=== PATIENT | female | born 1950 | race Caucasian/White ===

== ENCOUNTER → 2016-05-06 | Outpatient (CLI) | payer MEDICARE ==
--- NOTE | 2016-05-06 12:02 | KCIC ---
PROCEDURE Chest, two views. HISTORY Shortness of breath. FINDINGS Frontal and lateral views of the chest are obtained. There is right upper lobe consolidation. There is no effusion or pneumothorax. The cardiac silhouette is upper normal in size. IMPRESSION Right upper lobe consolidation. Followup to confirm complete resolution and exclude underlying central obstructing mass. Electronically signed by: Emily Cuello (May 06, 2016 12:01:20)
== END | disposition home or self-care (01) ==
LOC: KCIC 11:22
PROVIDERS: ATTEND Family Medicine
DX: R09.02 Hypoxemia (principal); R05 Cough; R07.89 Other chest pain; R50.9 Fever, unspecified; R91.8 Other nonspecific abnormal finding of lung field
CPT/HCPCS: 71020

== ENCOUNTER → 2016-05-12 | Outpatient (CLI) | payer MEDICARE ==
[~2016-05-12] MED LIST: ACYC400T PO; ALPR1TAB2 PO; ASPI81TA2 PO; CELE200C PO; HYDR-2762 PO; MECL25TA3 PO; METO5TAB PO; PANT40TA5 PO; PARO20TA55 PO; PARO40TA45 PO; TRAZ50TA15 PO
--- NOTE | 2016-05-12 11:37 | KCIC ---
Chest PA and lateral Indication: Right upper lobe pneumonia. Time of exam 11:22 a.m. Comparison is made with prior chest from 05/06/2016. There continues to be extensive infiltrate and consolidation involving the right upper lobe and right perihilar region. This appears very similar to prior exam. The left lung remains clear. The pulmonary vascularity is unremarkable. No effusion is seen. There is no pneumothorax. Impression: No change in the right upper lobe pneumonia when compared with exam from 05/06/2016. Electronically signed by: Yuval Gardner MD (May 12, 2016 11:35:48)
== END | disposition home or self-care (01) ==
LOC: KCIC 11:07
PROVIDERS: ATTEND Family Medicine
DX: J18.9 Pneumonia, unspecified organism (principal)
CPT/HCPCS: 71020

== ENCOUNTER 2016-05-13 11:52 | Inpatient (IN) | payer MEDICARE ==
[~2016-05-13] VITALS: Ht 121.9 cm; Wt 88.5 kg
--- NOTE | 2016-05-13 12:30 | EKG ---
[facility] [address] [place] [address] Test Date: 2016-05-13 Test Time: 12:17:46 Pat Name: OH BUSTAMANTE Department: Room: Gender: F Manager Long Term Care: : 1950 Requested By: MARY ANN ROSARIO Order Number: [id number] Reading MD: Annika Mcfadden Measurements Intervals [place] Rate: 67 P: -39 MT: 132 QRS: -15 QRSD: 72 T: 17 QT: 422 QTc: 449 Interpretive Statements SINUS RHYTHM LEFTWARD AXIS NO SPECIFIC ECG ABNORMALITIES RI6.01 No previous ECG available for comparison Electronically Signed On 05-18-2016 14:47:38 G[employer] FARMER by Annika Mcfadden
--- NOTE | 2016-05-13 14:08 | PHYS DOC ---
Past Medical History Past Medical History: Other Additional Past Medical Histor: "NERVE PROBLEMS", CHRONIC PAIN Past Surgical History: Hysterectomy, Knee Replacement, Other Additional Past Surgical Histo: LEFT LEG SX - ZONIA PLACEMENT Alcohol Use: None Drug Use: None Adult General Chief Complaint Chief Complaint: SHORTNESS OF BREATH HPI HPI 66-year-old female presents from her primary care physician's office with failed outpatient treatment of pneumonia. She was noted to have a right upper lobe infiltrate and was treated with antibiotics but did not improve. In speaking with the family doctor they were concerned that this could be a postobstructive infiltrate.. Patient denies any hemoptysis. Patient has not had any high fevers or sweats. She has had shortness of breath and some dyspnea on exertion. [] Review of Systems Review of Systems Constitutional: Denies fever or chills [] Eyes: Denies change in visual acuity, redness, or eye pain [] HENT: Denies nasal congestion or sore throat [] Respiratory: Per history of present illness [] Cardiovascular: No additional information not addressed in HPI [] GI: Denies abdominal pain, nausea, vomiting, bloody stools or diarrhea [] : Denies dysuria or hematuria [] Musculoskeletal: Denies back pain or joint pain [] Integument: Denies rash or skin lesions [] Neurologic: Denies headache, focal weakness or sensory changes [] Endocrine: Denies polyuria or polydipsia [] Current Medications Current Medications Current Medications Medications (Trade) Dose Ordered Sig/Yovana Start Time Stop Time Status Last Admin Dose Admin Info (Do NOT chart on this entry -- for MONITORING) 1 each PRN DAILY PRN 05/13/16 15:15 05/15/16 15:14 Iohexol (Omnipaque 300 Mg/ml) 75 ml 1X ONCE 05/13/16 15:15 05/13/16 15:16 DC 05/13/16 15:11 75 ML Levofloxacin/ Dextrose (LEVAQUIN 750mg PREMIX) 150 ml @ 100 mls/hr 1X ONCE 05/13/16 16:45 05/13/16 18:14 Levofloxacin/ Dextrose 1 each 1 each PRN DAILY PRN 05/13/16 16:15 UNV Allergies Allergies Allergies Coded Allergies Type Severity Reaction Last Updated Verified No Known Drug Allergies 05/13/16 No Physical Exam Physical Exam Constitutional: Well developed, well nourished, no acute distress, non-toxic appearance. [] HENT: Normocephalic, atraumatic, bilateral external ears normal, oropharynx moist, no oral exudates, nose normal. [] Eyes: PERRLA, EOMI, conjunctiva normal, no discharge. [] Neck: Normal range of motion, no tenderness, supple, no stridor. [] Cardiovascular:Heart rate regular rhythm, no murmur [] Lungs & Thorax: Bilateral breath sounds clear to auscultation [] Abdomen: Bowel sounds normal, soft, no tenderness, no masses, no pulsatile masses. [] Skin: Warm, dry, no erythema, no rash. [] Back: No tenderness, no CVA tenderness. [] Extremities: No tenderness, no cyanosis, no clubbing, ROM intact, no edema. [] Neurologic: Alert and oriented X 3, normal motor function, normal sensory function, no focal deficits noted. [] Psychologic: Affect normal, judgement normal, mood normal. [] Current Patient Data Vital Signs Vital Signs Date Time Temp Pulse Resp B/P Pulse Ox O2 Delivery O2 Flow Rate FiO2 05/13/16 15:39 70 20 135/86 98 Nasal Cannula 2 05/13/16 12:25 97.5 97.5 Lab Values Laboratory Tests Test 05/13/16 13:55 White Blood Count 9.3x10^3/uL (4.0-11.0) Red Blood Count 3.92x10^6/uL (3.50-5.40) Hemoglobin 12.6g/dL (12.0-15.5) Hematocrit 38.1% (36.0-47.0) Mean Corpuscular Volume 97fL (79-100) Mean Corpuscular Hemoglobin 32pg (25-35) Mean Corpuscular Hemoglobin Concent 33g/dL (31-37) Red Cell Distribution Width 14.5% (11.5-14.5) Platelet Count 591x10^3/uL (140-400) H Neutrophils (%) (Auto) 71% (31-73) Lymphocytes (%) (Auto) 19% (24-48) L Monocytes (%) (Auto) 6% (0-9) Eosinophils (%) (Auto) 3% (0-3) Basophils (%) (Auto) 1% (0-3) Neutrophils # (Auto) 6.6x10^3uL (1.8-7.7) Lymphocytes # (Auto) 1.7x10^3/uL (1.0-4.8) Monocytes # (Auto) 0.6x10^3/uL (0.0-1.1) Eosinophils # (Auto) 0.3x10^3/uL (0.0-0.7) Basophils # (Auto) 0.1x10^3/uL (0.0-0.2) Prothrombin Time 13.6SEC (11.7-14.0) Prothrombin Time INR 1.1 (0.8-1.1) Sodium Level 139mmol/L (136-145) Potassium Level 5.2mmol/L (3.5-5.1) H Chloride Level 100mmol/L (98-107) Carbon Dioxide Level 35mmol/L (21-32) H Anion Gap 4 (6-14) L Blood Urea Nitrogen 16mg/dL (7-20) Creatinine 0.8mg/dL (0.6-1.0) Estimated GFR (Cockcroft-Gault) 72.2 BUN/Creatinine Ratio 20 (6-20) Glucose Level 134mg/dL (70-99) H Lactic Acid Level 1.9mmol/L (0.4-2.0) Calcium Level 9.8mg/dL (8.5-10.1) Total Bilirubin 0.4mg/dL (0.2-1.0) Aspartate Amino Transferase (AST) 37U/L (15-37) Alanine Aminotransferase (ALT) 43U/L (14-59) Alkaline Phosphatase 121U/L (46-116) H Troponin I Quantitative < 0.017ng/mL (0.000-0.055) Total Protein 8.1g/dL (6.4-8.2) Albumin 2.6g/dL (3.4-5.0) L Albumin/Globulin Ratio 0.5 (1.0-1.7) L Laboratory Tests 05/13/16 13:55 Laboratory Tests 05/13/16 13:55 EKG EKG [EKG: Normal sinus rhythm rate of [address]-T changes] Radiology/Procedures Radiology/Procedures [facility] [address] [place] [address] IMAGING REPORT Signed PATIENT: OH BUSTAMANTE ACCOUNT: [id number] : 1950 LOCATION: ER AGE: 66 SEX: F EXAM STATUS: REG ER ORD. PHYSICIAN: MARY ANN ROSARIO DO REASON: rul mass PROCEDURE: CHEST W/CONTRAST CT of the chest with contrast, 05/13/2016: History: Right upper lobe mass, persistent infiltrate Multidetector CT imaging was performed following an IV bolus injection of iodinated contrast material. The thoracic aorta is of normal caliber. Minimal coronary artery calcification is evident. The heart is of normal size. No mediastinal adenopathy is seen. There is consolidation involving much of the right upper lobe with underlying air bronchograms. There is apparent obstruction of the right upper lobe bronchus near its origin. No discrete mass, separable from the adjacent consolidation, is delineated. The right bronchus intermedius, middle lobe and lower lobe bronchi are unremarkable. Areas of mild linear atelectasis and/or scarring are seen in other portions of the right lung and on the left. No left lung consolidation is seen. No pleural fluid is evident. The gallbladder surgically absent. The adrenal glands are unremarkable. There is loss of height with endplate deformities involving many of the thoracic vertebral bodies, as also noted on a CT thoracic spine study from 12/08/2012. IMPRESSION: 1. Right upper lobe consolidation compatible with pneumonia. 2. Apparent amputation of the right main bronchus near its origin raises the possibility of an obstructing neoplasm as the cause of the right upper lobe pneumonia. Bronchoscopy should be considered for further evaluation. DICTATED and SIGNED BY: JOSE GARSIA MD DATE: 05/13/16 0033 CC: JAEL CHRISTENSEN MD; MARY ANN ROSARIO DO ~ [] Course & Med Decision Making Course & Med Decision Making Pertinent Labs and Imaging studies reviewed. (See chart for details) Addendum by Dr. Matthew Ghosh M.D.: Care of patient was signed out to me at 1401. I personally evaluated the patient found that the patient was on supplemental oxygen with reports of action saturations decreasing to the upper 80s. I turned the patient's oxygen down and with minimal exertion the patient's oxygen saturation decreased to 83% with a good waveform. The patient was placed back on supplemental oxygen. I followed up with the patient's CT results which show a right upper lobe pneumonia as well as invasion of the right main bronchus suspicious for neoplasm. I consult to Dr. Phelps who evaluated the patient in the emergency department and he agrees with need for admission and further evaluation in hospital. Patient admitted to Dr. Hogan. Dragon Disclaimer Dragon Disclaimer This electronic medical record was generated, in whole or in part, using a voice recognition dictation system. Departure Departure Impression: Primary Impression: Community acquired pneumonia Additional Impressions: Hypoxia Lung neoplasm Disposition: ADMITTED INPATIENT Admitting Physician: Moisés Hogan Condition: GUARDED Referrals: JAEL CHRISTENSEN MD (PCP) Problem Qualifiers MARY ANN ROSARIO DO May 13, 2016 14:08 MATTHEW GHOSH MD May 13, 2016 16:20
[2016-05-13 14:11] LABS: BASO # 0.1 x10^3/uL (0.0-0.2); BASO % 1 % (0-3); EOS % 3 % (0-3); HEMATOCRIT 38.1 % (36.0-47.0); HEMOGLOBIN 12.6 g/dL (12.0-15.5); LYMPH # 1.7 x10^3/uL (1.0-4.8); LYMPH % 19 % (24-48); MEAN CORPUSCULAR HEMOGLOBIN 32 pg (25-35); MEAN CORPUSCULAR HGB CONC 33 g/dL (31-37); MEAN CORPUSCULAR VOLUME 97 fL (79-100); MONO % 6 % (0-9); NEUT % 71 % (31-73); PLATELET COUNT 591 x10^3/uL (140-400); RED BLOOD COUNT 3.92 x10^6/uL (3.50-5.40); RED CELL DISTRIBUTION WIDTH 14.5 % (11.5-14.5); WHITE BLOOD COUNT 9.3 x10^3/uL (4.0-11.0)
[2016-05-13 14:34] LABS: INR 1.1 (0.8-1.1); PROTHROMBIN TIME PATIENT 13.6 SEC (11.7-14.0)
[2016-05-13 15:08] LABS: CALCIUM 9.8 mg/dL (8.5-10.1); CREATININE 0.8 mg/dL (0.6-1.0); GFR 72.2; POTASSIUM 5.2 mmol/L (3.5-5.1)
[2016-05-13 15:14] LABS: ALBUMIN 2.6 g/dL (3.4-5.0); ALBUMIN/GLOBULIN RATIO 0.5 (1.0-1.7); TOTAL BILIRUBIN 0.4 mg/dL (0.2-1.0); TOTAL PROTEIN 8.1 g/dL (6.4-8.2)
[2016-05-13] MEDS ORDERED: CONTRAST GIVEN MC PRN (15:15)
[2016-05-13] MEDS ORDERED: IOHEXOL 300 MG/ML 75 ML VIAL IV ONE (15:15)
--- NOTE | 2016-05-13 15:39 | RAD ---
CT of the chest with contrast, 05/13/2016: History: Right upper lobe mass, persistent infiltrate Multidetector CT imaging was performed following an IV bolus injection of iodinated contrast material. The thoracic aorta is of normal caliber. Minimal coronary artery calcification is evident. The heart is of normal size. No mediastinal adenopathy is seen. There is consolidation involving much of the right upper lobe with underlying air bronchograms. There is apparent obstruction of the right upper lobe bronchus near its origin. No discrete mass, separable from the adjacent consolidation, is delineated. The right bronchus intermedius, middle lobe and lower lobe bronchi are unremarkable. Areas of mild linear atelectasis and/or scarring are seen in other portions of the right lung and on the left. No left lung consolidation is seen. No pleural fluid is evident. The gallbladder surgically absent. The adrenal glands are unremarkable. There is loss of height with endplate deformities involving many of the thoracic vertebral bodies, as also noted on a CT thoracic spine study from 12/08/2012. IMPRESSION: 1. Right upper lobe consolidation compatible with pneumonia. 2. Apparent amputation of the right main bronchus near its origin raises the possibility of an obstructing neoplasm as the cause of the right upper lobe pneumonia. Bronchoscopy should be considered for further evaluation.
[2016-05-13] MEDS ORDERED: LEVOFLOXACIN PER PHARMACY MC PRN (16:15)
--- NOTE | 2016-05-13 16:27 | PDOC ---
Provider Note Provider Note dictated post-obstructive vs aspiration pneumonia Bronch 10 am HEIDI LONGORIA MD May 13, 2016 16:27
[2016-05-13] MEDS ORDERED: PIP/TAZO PER PHARMACY MC PRN (16:30)
[2016-05-13] MEDS ORDERED: VANCOMYCIN 2 GM in IV NORMAL SALINE 500ML BAG 500 ML IV ONE (17:00)
[2016-05-13] MEDS ORDERED: PIPERACILLIN/TAZOBACTAM 4.5 GM in IV NORMAL SALINE 100ML 100 ML IV ONE (17:00)
[2016-05-13] MEDS ORDERED: ONDANSETRON PF 4 MG/2 ML VIAL. IV PRN ×2 (17:00→18:45)
[2016-05-13 17:15] LABS: HCO3 ABG 32 mmol/L (21-28); PCO2 ABG 52 mmHg (35-46); PH ABG 7.41 (7.35-7.45); PO2 ABG 87 mmHg (65-108); SAT O2 ABG 96 % (92-99)
--- NOTE | 2016-05-13 17:25 | CONS ---
DATE OF CONSULTATION: ATTENDING PHYSICIAN: Dr. Hogan. REASON FOR CONSULTATION: Pneumonia, possible postobstructive process. 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 The patient presented to the hospital with complaint of a persistent cough. Apparently, the cough has been present for 6 months. It happens with food as well. She had some colored sputum production. She did not have any fever. The patient was seen as an outpatient and was found to have pneumonia. As a result, she was sent to the ER. I have reviewed CT of the chest and it shows right upper lobe consolidation compatible with pneumonia. There is a possibility of a right main stem bronchus occlusion, which could be ____ mucus plug versus a possible endobronchial lesion. I have been asked to see her for further evaluation. The patient has not been on oxygen at home. No significant history of tobacco use. No significant thrombosis or pulmonary embolism. PAST MEDICAL HISTORY: History of dwarfism. SOCIAL HISTORY: No significant tobacco history. PAST SURGICAL HISTORY: Hysterectomy, knee replacement. ALLERGIES: None. MEDICATIONS: Medication that she received in the ER was Levaquin. REVIEW OF SYSTEMS: Twelve-point systems were obtained, pertinent positives discussed in history of present illness, otherwise noncontributory. All systems that were negative were reviewed as well. PHYSICAL EXAMINATION: VITAL SIGNS: She has a blood pressure of 135/86, pulse ox ____% on 2 liters, afebrile. HEENT: Sclerae nonicteric. NECK: Supple. LUNGS: Few rhonchi, right upper chest. CARDIOVASCULAR: Regular rate. ABDOMEN: Obese. EXTREMITIES: With no pitting edema. LABORATORY DATA: Reviewed. White cell count 9.3. Sodium ____5.2, BUN is 16, creatinine 0.8. IMPRESSION: 1. Right upper lobe consolidation with possible postobstructive process. This patient has been coughing for 6 months. The cough is also usually associated with food. The possibility of chronic aspiration cannot be ruled out. 2. No significant history of tobacco use. 3. Acute hypoxic respiratory failure secondary to above. 4. Moderate protein-calorie malnutrition. 5. Dwarfism. RECOMMENDATIONS: 1. Discussed with the patient and the and the father. Option for diagnostic bronchoscopy was explained and they agreed to proceed with the procedure. I did explain to them that she would be moderate to high risk with sedation resulting in hypoxia and hypercapnia, however, the only way to know for endobronchial lesion would be to do a bronchoscopy and they understand the risks. They also understand that she may require BiPAP post-procedure or even mechanical ventilation. 2. Broaden the antibiotic coverage with vancomycin and Zosyn. 3. Speech consult with video swallow to rule out chronic aspiration. 4. Bronchodilators. 5. We will followup chest x-rays in 3 days. 6. Further recommendations to follow. Discussed with ER physician and patient's family. HEIDI LONGORIA MD DR: IQRA/evelyn JOB#: [id number] / [id number]
[2016-05-13] MEDS ORDERED: ACETAMINOPHEN 325 MG TABLET. PO PRN (18:45)
[2016-05-13] MEDS ORDERED: hydrALAZINE 20 MG/ML VIAL. IVP PRN (18:45)
[2016-05-13] MEDS ORDERED: ALBUTEROL SULFATE 2.5 MG/3 ML NEBU. NEB PRN (18:45)
[2016-05-13] MEDS ORDERED: HYDROCODONE/APAP 5/325MG TABLET. PO PRN (18:45)
[2016-05-13] MEDS: VANCOMYCIN PER PHARMACY MC PRN (18:46)
[2016-05-13 19:55] VITALS: BP 129/63
[2016-05-13] MEDS ORDERED: PARO40TA45 PO (22:05)
[2016-05-13] MEDS ORDERED: HYDR-2762 PO ×2 (22:05→22:27)
[2016-05-13] MEDS ORDERED: PARO20TA55 PO (22:05)
[2016-05-13] MEDS ORDERED: TRAZ50TA15 PO (22:05)
[2016-05-13] MEDS ORDERED: ALPR1TAB2 PO (22:12)
[2016-05-13] MEDS: ALPRAZOLAM 1 MG TABLET PO SCH (22:49)
[2016-05-13] MEDS: traZODone 100 MG TABLET. PO SCH (22:50)
[2016-05-13] MEDS: PAROXETINE 20 MG TABLET. PO SCH (22:51)
[2016-05-13 23:35] VITALS: BP 90/45
[2016-05-14] VITALS (13 sets, daily range): BP systolic 90–136; BP diastolic 51–94
[2016-05-14] MEDS ORDERED: PIPERACILLIN/TAZOBACTAM 3.375 GM in IV NORMAL SALINE 50ML 50 ML IV SCH ×2
--- NOTE | 2016-05-14 00:11 | HP ---
ADMIT DATE: 05/13/2016 CHIEF COMPLAINT: Shortness of breath. HISTORY OF PRESENT ILLNESS: A 66-year-old female patient with prior history of chronic cough and diagnosed with pneumonia as outpatient. However, symptoms did not improve with oral antibiotics. She had right upper lobe infiltrate and recommended to go to the ER due to nonresolving pneumonia. The patient also complaining of postnasal discharge with chronic cough. She did have chronic pain and hypertension as chronic medical conditions and currently she was requiring oxygen to keep her saturations above 90%. PAST MEDICAL HISTORY: Chronic pain, hypertension . PAST SURGICAL HISTORY: Hysterectomy, knee replacement. PERSONAL HISTORY: No smoking, no alcohol, no drug abuse. FAMILY HISTORY: No cancers. REVIEW OF SYSTEMS: CONSTITUTIONAL: No fever or chills. EYES: No recent vision changes. SKIN: No rash or itching. CARDIOVASCULAR: No chest pain, syncope, palpitations or edema. RESPIRATORY: Cough. GASTROINTESTINAL: No nausea, vomiting, diarrhea or abdominal pain. NEUROLOGICAL: No headache, paralysis. ENDOCRINOLOGIC: No cold or heat intolerance. GENITOURINARY: No burning with urination, no urgency. MUSCULOSKELETAL: Back pain. LYMPHATICS: No enlarged nodes. PSYCHIATRIC: No anxiety or depression. HOME MEDICATIONS: Reviewed and reconciled. Please see MRAD. ALLERGIES: NKDA. PHYSICAL EXAM: GENERAL: The patient appears short in status, no acute distress, nontoxic appearance. HEENT: Head normocephalic, atraumatic. EYES: PERRLA, EOMI. NECK: No JVD, no thyromegaly. LUNGS: Anterior chest clear. HEART: S1, S2 present. ABDOMEN: Soft, nontender, no organomegaly. Skin: warm and dry. EXTREMITIES: No tenderness, no cyanosis no clubbing. NEUROLOGIC: Alert and oriented x 3. PSYCHIATRIC: Normal affect, judgment intact. VITAL SIGNS: Temperature 97.5, pulse 70, respirations 20, blood pressure 135/86, pulse ox 98 on 2 litres. LABORATORY DATA: ABGs: pH is 7.41, pCO2 of 52, pO2 51, FiO2 of 28%. Chemistry: Sodium is 139, potassium 5.0, chloride 100, carbon dioxide 35, anion gap is 4, creatinine 0.8 and glucose is 134. Troponin is less than 0.017. Hematology: WBC 9.3, hemoglobin is 12.6, MCV is 97, MCHC 33, platelets 591 Coagulation: INR is 1.1. IMAGING STUDIES: CT of the chest showed right upper lobe consolidation compatible with pneumonia, ____ of the right main bronchus ____ raises the possibility of obstructive neoplasm as a cause of the right upper lobe pneumonia. ASSESSMENT: 1. Right upper lobe infiltrate, suspected neoplasm versus pneumonia, mucus plug. 2. Hypoxic respiratory failure. 3. Chronic back pain. 4. Mild hyperkalemia. 5. Thrombocytosis. 6. Hypertension. PLAN: 1. The patient has been admitted to the hospital for further evaluation. Currently we will start her on IV antibiotics, IV Levaquin and consult pulmonology, possible bronchoscopy in a.m. 2. Speech and swallow evaluation. 3. Pain control with oral [place]. 4. Supplemental oxygen to keep saturations around 90%. 5. Dwarfism, which is chronic. 6. Periodic bronchodilator for symptomatic treatment. 7. Plan explained to patient and family members at bedside. All questions were answered. LISETH MONREAL MD DR: JAVY/evelyn JOB#: [id number] / [id number] [place]
[2016-05-14] MEDS: FENTANYL PF 100 MCG/2 ML VIAL. IV PRN ×3 (00:47→12:04)
--- NOTE | 2016-05-14 01:06 | ACF ---
Admission Forms Criteria RESPIRATORY FAILURE [facility] Clinical Indications for Admission to Inpatient Care (Place 'X' for any and all applicable criteria): Hospital admission is needed for appropriate care of the patient because of acute respiratory failure or insufficiency as indicated by ANY ONE of the following(1)(2)(3)(4)(5)(6)(7)(8): [ ]I. Mechanical ventilation needed (acute invasive or noninvasive) [X]II. Severe ventilation deficit as indicated by ANY ONE of the following (9) [ ]a) Respiratory acidosis (pH less than 7.32 and partial pressure of carbon dioxide greater than 40 mm Hg (5.3 kPa)) [X]b) Partial pressure of carbon dioxide greater than 44 mm Hg (5.9 kPa ) (new) [ ]c) Airflow measurements less than 25% of predicted (eg, peak expiratory flow rate less than 100 L/minute) [ ]d) Forced vital capacity less than 15 mL/kg of ideal body weight, or 50% decrease in vital capacity from baseline [ ]III. Noncardiac pulmonary edema not resolving with rapid emergency treatment (8) [ ]IV. Severe respiratory distress as indicated by ANY ONE of the following: [ ]a) Severe tachypnea (respiratory rate greater than 30, greater than 45 for 6-month-old, greater than 60 for ) [ ]b) Severe hypoxemia (partial pressure of oxygen less than 50 mm Hg ( 6.7 kPa) on greater than 50% oxygen or partial pressure of oxygen to FIO2 ratio less than 200) [ ]c) Mental status deterioration from respiratory disease [ ]V. Airway obstruction or inadequate protection [A](10)(11) The original [employer] content created by [employer] has been revised. The portions of the content which have been revised are identified through the use of italic text or in bold, and [employer] has neither reviewed nor approved the modified material. All other unmodified content is copyright [employer]. Please see references footnoted in the original [employer] edition 2016 Admission Criteria Met?: Yes YANNICK LEE May 14, 2016 01:06
[2016-05-14] MEDS: PIPERACILLIN/TAZOBACTAM 4.5 GM in IV NORMAL SALINE 100ML 100 ML IV SCH ×5 (01:56→23:57)
[2016-05-14] MEDS ORDERED: CELE200C PO (04:57)
[2016-05-14] MEDS ORDERED: ASPI81TA2 PO (04:57)
[2016-05-14] MEDS ORDERED: ACYC400T PO (04:57)
[2016-05-14] MEDS ORDERED: PANT40TA5 PO (04:57)
[2016-05-14] MEDS ORDERED: MECLIZINE HCL 12.5 MG TABLET. PO PRN (05:00)
[2016-05-14] MEDS ORDERED: METOCLOPRAMIDE 5 MG TABLET PO PRN (05:00)
[2016-05-14] MEDS ORDERED: MECL25TA3 PO (05:03)
[2016-05-14] MEDS ORDERED: METO5TAB PO (05:03)
[2016-05-14 06:14] LABS: CREATININE 0.6 mg/dL (0.6-1.0); GFR 100.6; POTASSIUM 4.3 mmol/L (3.5-5.1)
[2016-05-14] MEDS: PANTOPRAZOLE 40 MG TABLET. PO SCH (07:30)
[2016-05-14 07:35] LABS: BASO # 0.1 x10^3/uL (0.0-0.2); BASO % 1 % (0-3); EOS % 3 % (0-3); HEMATOCRIT 33.3 % (36.0-47.0); HEMOGLOBIN 11.1 g/dL (12.0-15.5); LYMPH # 1.8 x10^3/uL (1.0-4.8); LYMPH % 22 % (24-48); MEAN CORPUSCULAR HEMOGLOBIN 32 pg (25-35); MEAN CORPUSCULAR HGB CONC 33 g/dL (31-37); MEAN CORPUSCULAR VOLUME 97 fL (79-100); MONO % 9 % (0-9); NEUT % 66 % (31-73); PLATELET COUNT 492 x10^3/uL (140-400); RED BLOOD COUNT 3.43 x10^6/uL (3.50-5.40); RED CELL DISTRIBUTION WIDTH 14.4 % (11.5-14.5)
[2016-05-14] MEDS: ACYCLOVIR 200 MG CAPSULE PO SCH (07:53)
[2016-05-14] MEDS: CELECOXIB 200 MG CAPSULE PO SCH ×3 (07:53→21:00)
[2016-05-14] MEDS: ASPIRIN 81 MG TAB.CHEW PO SCH (07:53)
[2016-05-14] MEDS: PAROXETINE 20 MG TABLET. PO SCH ×3 (07:54→21:00)
[2016-05-14] MEDS: ALPRAZOLAM 1 MG TABLET PO SCH ×5 (07:54→21:00)
[2016-05-14] MEDS ORDERED: VANCOMYCIN 1.25 GM in IV NORMAL SALINE 250ML 250 ML IV SCH (08:00)
[2016-05-14] MEDS ORDERED: PAROXETINE HCL PO SCH (08:00)
--- NOTE | 2016-05-14 08:58 | PDOC ---
PULMONARY PROGRESS NOTES Subjective sleepy no soa Vitals Vital Signs Date Time Temp Pulse Resp B/P Pulse Ox O2 Delivery O2 Flow Rate FiO2 05/14/16 07:57 98 Nasal Cannula 2.0 05/14/16 07:45 97.5 67 16 92/51 97.5 Lungs: Clear Cardiovascular: S1 Abdomen: Soft Extremities: No Edema Skin: Warm Labs Laboratory Tests Test 05/13/16 13:55 05/13/16 17:00 05/14/16 05:30 05/14/16 07:00 White Blood Count 9.3x10^3/uL (4.0-11.0) 8.0x10^3/uL (4.0-11.0) Red Blood Count 3.92x10^6/uL (3.50-5.40) 3.43x10^6/uL (3.50-5.40) Hemoglobin 12.6g/dL (12.0-15.5) 11.1g/dL (12.0-15.5) Hematocrit 38.1% (36.0-47.0) 33.3% (36.0-47.0) Mean Corpuscular Volume 97fL (79-100) 97fL (79-100) Mean Corpuscular Hemoglobin 32pg (25-35) 32pg (25-35) Mean Corpuscular Hemoglobin Concent 33g/dL (31-37) 33g/dL (31-37) Red Cell Distribution Width 14.5% (11.5-14.5) 14.4% (11.5-14.5) Platelet Count 591x10^3/uL (140-400) 492x10^3/uL (140-400) Neutrophils (%) (Auto) 71% (31-73) 66% (31-73) Lymphocytes (%) (Auto) 19% (24-48) 22% (24-48) Monocytes (%) (Auto) 6% (0-9) 9% (0-9) Eosinophils (%) (Auto) 3% (0-3) 3% (0-3) Basophils (%) (Auto) 1% (0-3) 1% (0-3) Neutrophils # (Auto) 6.6x10^3uL (1.8-7.7) 5.3x10^3uL (1.8-7.7) Lymphocytes # (Auto) 1.7x10^3/uL (1.0-4.8) 1.8x10^3/uL (1.0-4.8) Monocytes # (Auto) 0.6x10^3/uL (0.0-1.1) 0.7x10^3/uL (0.0-1.1) Eosinophils # (Auto) 0.3x10^3/uL (0.0-0.7) 0.2x10^3/uL (0.0-0.7) Basophils # (Auto) 0.1x10^3/uL (0.0-0.2) 0.1x10^3/uL (0.0-0.2) Prothrombin Time 13.6SEC (11.7-14.0) Prothromb Time International Ratio 1.1 (0.8-1.1) Sodium Level 139mmol/L (136-145) 141mmol/L (136-145) Potassium Level 5.2mmol/L (3.5-5.1) 4.3mmol/L (3.5-5.1) Chloride Level 100mmol/L (98-107) 105mmol/L (98-107) Carbon Dioxide Level 35mmol/L (21-32) 31mmol/L (21-32) Anion Gap 4 (6-14) 5 (6-14) Blood Urea Nitrogen 16mg/dL (7-20) 12mg/dL (7-20) Creatinine 0.8mg/dL (0.6-1.0) 0.6mg/dL (0.6-1.0) Estimated GFR (Cockcroft-Gault) 72.2 100.6 BUN/Creatinine Ratio 20 (6-20) Glucose Level 134mg/dL (70-99) 109mg/dL (70-99) Lactic Acid Level 1.9mmol/L (0.4-2.0) Calcium Level 9.8mg/dL (8.5-10.1) 8.0mg/dL (8.5-10.1) Total Bilirubin 0.4mg/dL (0.2-1.0) Aspartate Amino Transf (AST/SGOT) 37U/L (15-37) Alanine Aminotransferase (ALT/SGPT) 43U/L (14-59) Alkaline Phosphatase 121U/L (46-116) Troponin I Quantitative < 0.017ng/mL (0.000-0.055) Total Protein 8.1g/dL (6.4-8.2) Albumin 2.6g/dL (3.4-5.0) Albumin/Globulin Ratio 0.5 (1.0-1.7) O2 Saturation 96% (92-99) Arterial Blood pH 7.41 (7.35-7.45) Arterial Blood pCO2 at Patient Temp 52mmHg (35-46) Arterial Blood pO2 at Patient Temp 87mmHg (65-108) Arterial Blood HCO3 32mmol/L (21-28) Arterial Blood Base Excess 6mmol/L (-3-3) FiO2 28.0 Laboratory Tests Test 05/13/16 13:55 05/13/16 17:00 05/14/16 05:30 05/14/16 07:00 White Blood Count 9.3x10^3/uL (4.0-11.0) 8.0x10^3/uL (4.0-11.0) Red Blood Count 3.92x10^6/uL (3.50-5.40) 3.43x10^6/uL (3.50-5.40) Hemoglobin 12.6g/dL (12.0-15.5) 11.1g/dL (12.0-15.5) Hematocrit 38.1% (36.0-47.0) 33.3% (36.0-47.0) Mean Corpuscular Volume 97fL (79-100) 97fL (79-100) Mean Corpuscular Hemoglobin 32pg (25-35) 32pg (25-35) Mean Corpuscular Hemoglobin Concent 33g/dL (31-37) 33g/dL (31-37) Red Cell Distribution Width 14.5% (11.5-14.5) 14.4% (11.5-14.5) Platelet Count 591x10^3/uL (140-400) 492x10^3/uL (140-400) Neutrophils (%) (Auto) 71% (31-73) 66% (31-73) Lymphocytes (%) (Auto) 19% (24-48) 22% (24-48) Monocytes (%) (Auto) 6% (0-9) 9% (0-9) Eosinophils (%) (Auto) 3% (0-3) 3% (0-3) Basophils (%) (Auto) 1% (0-3) 1% (0-3) Neutrophils # (Auto) 6.6x10^3uL (1.8-7.7) 5.3x10^3uL (1.8-7.7) Lymphocytes # (Auto) 1.7x10^3/uL (1.0-4.8) 1.8x10^3/uL (1.0-4.8) Monocytes # (Auto) 0.6x10^3/uL (0.0-1.1) 0.7x10^3/uL (0.0-1.1) Eosinophils # (Auto) 0.3x10^3/uL (0.0-0.7) 0.2x10^3/uL (0.0-0.7) Basophils # (Auto) 0.1x10^3/uL (0.0-0.2) 0.1x10^3/uL (0.0-0.2) Prothrombin Time 13.6SEC (11.7-14.0) Prothromb Time International Ratio 1.1 (0.8-1.1) Sodium Level 139mmol/L (136-145) 141mmol/L (136-145) Potassium Level 5.2mmol/L (3.5-5.1) 4.3mmol/L (3.5-5.1) Chloride Level 100mmol/L (98-107) 105mmol/L (98-107) Carbon Dioxide Level 35mmol/L (21-32) 31mmol/L (21-32) Anion Gap 4 (6-14) 5 (6-14) Blood Urea Nitrogen 16mg/dL (7-20) 12mg/dL (7-20) Creatinine 0.8mg/dL (0.6-1.0) 0.6mg/dL (0.6-1.0) Estimated GFR (Cockcroft-Gault) 72.2 100.6 BUN/Creatinine Ratio 20 (6-20) Glucose Level 134mg/dL (70-99) 109mg/dL (70-99) Lactic Acid Level 1.9mmol/L (0.4-2.0) Calcium Level 9.8mg/dL (8.5-10.1) 8.0mg/dL (8.5-10.1) Total Bilirubin 0.4mg/dL (0.2-1.0) Aspartate Amino Transf (AST/SGOT) 37U/L (15-37) Alanine Aminotransferase (ALT/SGPT) 43U/L (14-59) Alkaline Phosphatase 121U/L (46-116) Troponin I Quantitative < 0.017ng/mL (0.000-0.055) Total Protein 8.1g/dL (6.4-8.2) Albumin 2.6g/dL (3.4-5.0) Albumin/Globulin Ratio 0.5 (1.0-1.7) O2 Saturation 96% (92-99) Arterial Blood pH 7.41 (7.35-7.45) Arterial Blood pCO2 at Patient Temp 52mmHg (35-46) Arterial Blood pO2 at Patient Temp 87mmHg (65-108) Arterial Blood HCO3 32mmol/L (21-28) Arterial Blood Base Excess 6mmol/L (-3-3) FiO2 28.0 Medications Active Scripts Medications Dose Route/Sig Days Date Category Metoclopramide Hcl 5 Mg Tablet 5 Mg PO TID PRN 05/14/16 Reported Meclizine Hcl 25 Mg Tablet 1 Tab PO PRN TID 05/14/16 Reported Pantoprazole Sodium 40 Mg Tablet.dr 1 Tab PO DAILY 05/14/16 Reported Acyclovir 400 Mg Tablet 1 Tab PO DAILY08 05/14/16 Reported Aspirin 81 Mg Tab.chew 1 Tab PO DAILY 05/14/16 Reported Celebrex (Celecoxib) 200 Mg Capsule 200 Mg PO BID 30 05/14/16 Reported Hydrocodone-Apap 7.5-325 (Hydrocodone Bit/Acetaminophen) 1 Each Tablet 1 Tab PO Q8HRS 05/13/16 Reported Xanax (Alprazolam) 1 Mg Tablet 1 Tab PO TID 05/13/16 Reported Trazodone Hcl 50 Mg Tablet 2 Tab PO QHS 05/13/16 Reported Paxil (Paroxetine Hcl) 20 Mg Tablet 1 Tab PO DAILY 05/13/16 Reported Paxil (Paroxetine Hcl) 40 Mg Tablet 1 Tab PO DAILY08 05/13/16 Reported Impression . 1. Right upper lobe consolidation with possible postobstructive process. This patient has been coughing for 6 months. The cough is also usually associated with food. The possibility of chronic aspiration cannot be ruled out. 2. No significant history of tobacco use. 3. Acute hypoxic respiratory failure secondary to above. 4. Moderate protein-calorie malnutrition. 5. Dwarfism. Plan . 1. Discussed with the patient and the and the father. Option for diagnostic bronchoscopy was explained and they agreed to proceed with the procedure. I did explain to them that she would be moderate to high risk with sedation resulting in hypoxia and hypercapnia, however, the only way to know for endobronchial lesion would be to do a bronchoscopy and they understand the risks. They also understand that she may require BiPAP post-procedure or even mechanical ventilation. 2. Broaden the antibiotic coverage with vancomycin and Zosyn. 3. Speech consult with video swallow to rule out chronic aspiration. 4. Bronchodilators. 5. We will followup chest x-rays in 3 days. 6. Further recommendations to follow. HEIDI LONGORIA MD May 14, 2016 08:58
[2016-05-14 09:10] LABS: % EOS 6 % (0-5); PLT ESTIMATE INCREASED (ADEQUATE)
[2016-05-14] MEDS ORDERED: MIDAZOLAM HCL 2 MG/2 ML VIAL. ONE (09:37)
[2016-05-14] MEDS ORDERED: PROPOFOL 20 ML IV ONE (09:38)
[2016-05-14] MEDS: IV RINGERS,LACTATED 1000ML 1,000 ML IV SCH ×2 (10:04→22:19)
[2016-05-14] MEDS ORDERED: EPINEPHRINE 1 MG/10 ML DISP.SYRIN. ONE (10:10)
--- NOTE | 2016-05-14 11:18 | OP ---
DATE OF SURGERY: NAME OF THE PROCEDURE: Bronchoscopy. INDICATIONS FOR THE PROCEDURE: Endobronchial mass lesion. DESCRIPTION OF PROCEDURE: Informed consent was obtained from the patient and her . All the risks including risk of respiratory failure, need for mechanical ventilation and BiPAP were explained. They agreed to proceed with the procedure. Benefits were explained as well. Propofol was used by Anesthesia. Bronchoscope was introduced through the right nostril. The upper airway was passed. Vocal cords reached. They move equally with respiration. The trachea was entered. No tracheal lesions seen. The right lung was first examined. The right upper lobe opening was completely occluded by the endobronchial lesion. It could also be a foreign body granuloma. Biopsies x 2 were done from this area with minimal bleeding, which was controlled with epinephrine. Right middle lobe and right lower lobe were patent. Left lung was examined. All subsegments of left upper lingula and left lower lobe were examined, no endobronchial lesions seen. The patient was restless during the procedure, but eventually tolerated it. IMPRESSION: 1. Endobronchial lesion seen at the opening of the right upper lobe causing total occlusion. It is most likely malignant, but the possibility of foreign body endobronchial granuloma is also a consideration. Biopsies x 2 and cytology brush x 1 was performed. 2. No significant purulent secretions seen. 3. Follow the results of biopsy. HEIDI LONGORIA MD DR: IQRA/evelyn JOB#: [id number] / [id number]
[2016-05-14] MEDS ORDERED: FENTANYL PF 100 MCG/2 ML VIAL. IV PRN (12:00)
--- NOTE | 2016-05-14 12:02 | PDOC ---
PROGRESS NOTES Chief Complaint Chief Complaint 1. Right upper lobe infiltrate 2. Hypoxic respiratory failure. 3. Chronic back pain. 4. Mild hyperkalemia. 5. Thrombocytosis. 6. Hypertension. 7. Dwarfism History of Present Illness History of Present Illness The pt was awake and somewhat anxious upon arrival to room this AM. The pt had just returned from Diagnostic Bronchoscopy and stated that she was feeling anxious. When asked if the pt took any medications for anxiety she did admit to taking Hydrocodone for anxiety and pain. The pt was still complaining of a cough this morning after the procedure and some fatigue from being unable to sleep. RITU RN- pt on regular home pain control; will hold pain meds for now while patient recovering post anesthesia Vitals Vitals Vital Signs Date Time Temp Pulse Resp B/P Pulse Ox O2 Delivery O2 Flow Rate FiO2 05/14/16 10:35 90 18 103/84 98 Simple Mask 6 05/14/16 10:20 97.0 97.0 Physical Exam General: Alert, Cooperative, mild distress Heart: Regular rate, No murmurs Lungs: Wheezing, Other (Diminished breath sounds in RUL) Abdomen: Soft, No tenderness Extremities: No cyanosis, No edema Skin: No rashes, No breakdown Labs LABS Laboratory Tests Test 05/13/16 13:55 05/13/16 17:00 05/14/16 05:30 05/14/16 07:00 White Blood Count 9.3x10^3/uL (4.0-11.0) 8.0x10^3/uL (4.0-11.0) Red Blood Count 3.92x10^6/uL (3.50-5.40) 3.43x10^6/uL (3.50-5.40) Hemoglobin 12.6g/dL (12.0-15.5) 11.1g/dL (12.0-15.5) Hematocrit 38.1% (36.0-47.0) 33.3% (36.0-47.0) Mean Corpuscular Volume 97fL (79-100) 97fL (79-100) Mean Corpuscular Hemoglobin 32pg (25-35) 32pg (25-35) Mean Corpuscular Hemoglobin Concent 33g/dL (31-37) 33g/dL (31-37) Red Cell Distribution Width 14.5% (11.5-14.5) 14.4% (11.5-14.5) Platelet Count 591x10^3/uL (140-400) 492x10^3/uL (140-400) Neutrophils (%) (Auto) 71% (31-73) 66% (31-73) Lymphocytes (%) (Auto) 19% (24-48) 22% (24-48) Monocytes (%) (Auto) 6% (0-9) 9% (0-9) Eosinophils (%) (Auto) 3% (0-3) 3% (0-3) Basophils (%) (Auto) 1% (0-3) 1% (0-3) Neutrophils # (Auto) 6.6x10^3uL (1.8-7.7) 5.3x10^3uL (1.8-7.7) Lymphocytes # (Auto) 1.7x10^3/uL (1.0-4.8) 1.8x10^3/uL (1.0-4.8) Monocytes # (Auto) 0.6x10^3/uL (0.0-1.1) 0.7x10^3/uL (0.0-1.1) Eosinophils # (Auto) 0.3x10^3/uL (0.0-0.7) 0.2x10^3/uL (0.0-0.7) Basophils # (Auto) 0.1x10^3/uL (0.0-0.2) 0.1x10^3/uL (0.0-0.2) Prothrombin Time 13.6SEC (11.7-14.0) Prothromb Time International Ratio 1.1 (0.8-1.1) Sodium Level 139mmol/L (136-145) 141mmol/L (136-145) Potassium Level 5.2mmol/L (3.5-5.1) 4.3mmol/L (3.5-5.1) Chloride Level 100mmol/L (98-107) 105mmol/L (98-107) Carbon Dioxide Level 35mmol/L (21-32) 31mmol/L (21-32) Anion Gap 4 (6-14) 5 (6-14) Blood Urea Nitrogen 16mg/dL (7-20) 12mg/dL (7-20) Creatinine 0.8mg/dL (0.6-1.0) 0.6mg/dL (0.6-1.0) Estimated GFR (Cockcroft-Gault) 72.2 100.6 BUN/Creatinine Ratio 20 (6-20) Glucose Level 134mg/dL (70-99) 109mg/dL (70-99) Lactic Acid Level 1.9mmol/L (0.4-2.0) Calcium Level 9.8mg/dL (8.5-10.1) 8.0mg/dL (8.5-10.1) Total Bilirubin 0.4mg/dL (0.2-1.0) Aspartate Amino Transf (AST/SGOT) 37U/L (15-37) Alanine Aminotransferase (ALT/SGPT) 43U/L (14-59) Alkaline Phosphatase 121U/L (46-116) Troponin I Quantitative < 0.017ng/mL (0.000-0.055) Total Protein 8.1g/dL (6.4-8.2) Albumin 2.6g/dL (3.4-5.0) Albumin/Globulin Ratio 0.5 (1.0-1.7) O2 Saturation 96% (92-99) Arterial Blood pH 7.41 (7.35-7.45) Arterial Blood pCO2 at Patient Temp 52mmHg (35-46) Arterial Blood pO2 at Patient Temp 87mmHg (65-108) Arterial Blood HCO3 32mmol/L (21-28) Arterial Blood Base Excess 6mmol/L (-3-3) FiO2 28.0 Segmented Neutrophils % 62% (35-66) Band Neutrophils % 2% (0-9) Lymphocytes % 17% (24-48) Monocytes % 12% (0-10) Eosinophils % 6% (0-5) Myelocytes % 1% (0-0) Platelet Estimate Increased (ADEQUATE) Review of Systems Review of Systems Complaining of Cough Complaining of Fatigue Complaining of Anxiety post Diagnostic Bronchoscopy Assessment and Plan Assessmemt and Plan Problems Medical Problems: (1) Community acquired pneumonia Status: Acute (2) Hypoxia Status: Acute (3) Lung neoplasm Status: Acute 1. Right upper lobe infiltrate 2. Hypoxic respiratory failure. 3. Chronic back pain. 4. Mild hyperkalemia. 5. Thrombocytosis. 6. Hypertension. 7. Dwarfism Plan: - RUL Infiltrate- Diagnostic Bronchoscopy performed this AM. Appreciate pulm recommendations and help on case - Will continue IV Levaquin; Will also continue Vancomycin and Zosyn as recommended for broader abx coverage - Continue Supplemental 02 with Nasal Cannula - Speech/Swallow Evaluation ordered - PT/OT ordered to evaluate and treat prn - May resume PO home medications later this afternoon when ok with Pulm - Fentanyl Ordered at this time for pain; Will consider restarting home medications in AM Problems: Comment Review of Relevant I have reviewed the following items ginger (where applicable) has been applied. Labs Laboratory Tests Test 05/13/16 13:55 05/13/16 17:00 05/14/16 05:30 05/14/16 07:00 White Blood Count 9.3x10^3/uL (4.0-11.0) 8.0x10^3/uL (4.0-11.0) Red Blood Count 3.92x10^6/uL (3.50-5.40) 3.43x10^6/uL (3.50-5.40) Hemoglobin 12.6g/dL (12.0-15.5) 11.1g/dL (12.0-15.5) Hematocrit 38.1% (36.0-47.0) 33.3% (36.0-47.0) Mean Corpuscular Volume 97fL (79-100) 97fL (79-100) Mean Corpuscular Hemoglobin 32pg (25-35) 32pg (25-35) Mean Corpuscular Hemoglobin Concent 33g/dL (31-37) 33g/dL (31-37) Red Cell Distribution Width 14.5% (11.5-14.5) 14.4% (11.5-14.5) Platelet Count 591x10^3/uL (140-400) 492x10^3/uL (140-400) Neutrophils (%) (Auto) 71% (31-73) 66% (31-73) Lymphocytes (%) (Auto) 19% (24-48) 22% (24-48) Monocytes (%) (Auto) 6% (0-9) 9% (0-9) Eosinophils (%) (Auto) 3% (0-3) 3% (0-3) Basophils (%) (Auto) 1% (0-3) 1% (0-3) Neutrophils # (Auto) 6.6x10^3uL (1.8-7.7) 5.3x10^3uL (1.8-7.7) Lymphocytes # (Auto) 1.7x10^3/uL (1.0-4.8) 1.8x10^3/uL (1.0-4.8) Monocytes # (Auto) 0.6x10^3/uL (0.0-1.1) 0.7x10^3/uL (0.0-1.1) Eosinophils # (Auto) 0.3x10^3/uL (0.0-0.7) 0.2x10^3/uL (0.0-0.7) Basophils # (Auto) 0.1x10^3/uL (0.0-0.2) 0.1x10^3/uL (0.0-0.2) Prothrombin Time 13.6SEC (11.7-14.0) Prothromb Time International Ratio 1.1 (0.8-1.1) Sodium Level 139mmol/L (136-145) 141mmol/L (136-145) Potassium Level 5.2mmol/L (3.5-5.1) 4.3mmol/L (3.5-5.1) Chloride Level 100mmol/L (98-107) 105mmol/L (98-107) Carbon Dioxide Level 35mmol/L (21-32) 31mmol/L (21-32) Anion Gap 4 (6-14) 5 (6-14) Blood Urea Nitrogen 16mg/dL (7-20) 12mg/dL (7-20) Creatinine 0.8mg/dL (0.6-1.0) 0.6mg/dL (0.6-1.0) Estimated GFR (Cockcroft-Gault) 72.2 100.6 BUN/Creatinine Ratio 20 (6-20) Glucose Level 134mg/dL (70-99) 109mg/dL (70-99) Lactic Acid Level 1.9mmol/L (0.4-2.0) Calcium Level 9.8mg/dL (8.5-10.1) 8.0mg/dL (8.5-10.1) Total Bilirubin 0.4mg/dL (0.2-1.0) Aspartate Amino Transf (AST/SGOT) 37U/L (15-37) Alanine Aminotransferase (ALT/SGPT) 43U/L (14-59) Alkaline Phosphatase 121U/L (46-116) Troponin I Quantitative < 0.017ng/mL (0.000-0.055) Total Protein 8.1g/dL (6.4-8.2) Albumin 2.6g/dL (3.4-5.0) Albumin/Globulin Ratio 0.5 (1.0-1.7) O2 Saturation 96% (92-99) Arterial Blood pH 7.41 (7.35-7.45) Arterial Blood pCO2 at Patient Temp 52mmHg (35-46) Arterial Blood pO2 at Patient Temp 87mmHg (65-108) Arterial Blood HCO3 32mmol/L (21-28) Arterial Blood Base Excess 6mmol/L (-3-3) FiO2 28.0 Segmented Neutrophils % 62% (35-66) Band Neutrophils % 2% (0-9) Lymphocytes % 17% (24-48) Monocytes % 12% (0-10) Eosinophils % 6% (0-5) Myelocytes % 1% (0-0) Platelet Estimate Increased (ADEQUATE) Laboratory Tests Test 05/13/16 13:55 05/13/16 17:00 05/14/16 05:30 05/14/16 07:00 White Blood Count 9.3x10^3/uL (4.0-11.0) 8.0x10^3/uL (4.0-11.0) Red Blood Count 3.92x10^6/uL (3.50-5.40) 3.43x10^6/uL (3.50-5.40) Hemoglobin 12.6g/dL (12.0-15.5) 11.1g/dL (12.0-15.5) Hematocrit 38.1% (36.0-47.0) 33.3% (36.0-47.0) Mean Corpuscular Volume 97fL (79-100) 97fL (79-100) Mean Corpuscular Hemoglobin 32pg (25-35) 32pg (25-35) Mean Corpuscular Hemoglobin Concent 33g/dL (31-37) 33g/dL (31-37) Red Cell Distribution Width 14.5% (11.5-14.5) 14.4% (11.5-14.5) Platelet Count 591x10^3/uL (140-400) 492x10^3/uL (140-400) Neutrophils (%) (Auto) 71% (31-73) 66% (31-73) Lymphocytes (%) (Auto) 19% (24-48) 22% (24-48) Monocytes (%) (Auto) 6% (0-9) 9% (0-9) Eosinophils (%) (Auto) 3% (0-3) 3% (0-3) Basophils (%) (Auto) 1% (0-3) 1% (0-3) Neutrophils # (Auto) 6.6x10^3uL (1.8-7.7) 5.3x10^3uL (1.8-7.7) Lymphocytes # (Auto) 1.7x10^3/uL (1.0-4.8) 1.8x10^3/uL (1.0-4.8) Monocytes # (Auto) 0.6x10^3/uL (0.0-1.1) 0.7x10^3/uL (0.0-1.1) Eosinophils # (Auto) 0.3x10^3/uL (0.0-0.7) 0.2x10^3/uL (0.0-0.7) Basophils # (Auto) 0.1x10^3/uL (0.0-0.2) 0.1x10^3/uL (0.0-0.2) Prothrombin Time 13.6SEC (11.7-14.0) Prothromb Time International Ratio 1.1 (0.8-1.1) Sodium Level 139mmol/L (136-145) 141mmol/L (136-145) Potassium Level 5.2mmol/L (3.5-5.1) 4.3mmol/L (3.5-5.1) Chloride Level 100mmol/L (98-107) 105mmol/L (98-107) Carbon Dioxide Level 35mmol/L (21-32) 31mmol/L (21-32) Anion Gap 4 (6-14) 5 (6-14) Blood Urea Nitrogen 16mg/dL (7-20) 12mg/dL (7-20) Creatinine 0.8mg/dL (0.6-1.0) 0.6mg/dL (0.6-1.0) Estimated GFR (Cockcroft-Gault) 72.2 100.6 BUN/Creatinine Ratio 20 (6-20) Glucose Level 134mg/dL (70-99) 109mg/dL (70-99) Lactic Acid Level 1.9mmol/L (0.4-2.0) Calcium Level 9.8mg/dL (8.5-10.1) 8.0mg/dL (8.5-10.1) Total Bilirubin 0.4mg/dL (0.2-1.0) Aspartate Amino Transf (AST/SGOT) 37U/L (15-37) Alanine Aminotransferase (ALT/SGPT) 43U/L (14-59) Alkaline Phosphatase 121U/L (46-116) Troponin I Quantitative < 0.017ng/mL (0.000-0.055) Total Protein 8.1g/dL (6.4-8.2) Albumin 2.6g/dL (3.4-5.0) Albumin/Globulin Ratio 0.5 (1.0-1.7) O2 Saturation 96% (92-99) Arterial Blood pH 7.41 (7.35-7.45) Arterial Blood pCO2 at Patient Temp 52mmHg (35-46) Arterial Blood pO2 at Patient Temp 87mmHg (65-108) Arterial Blood HCO3 32mmol/L (21-28) Arterial Blood Base Excess 6mmol/L (-3-3) FiO2 28.0 Segmented Neutrophils % 62% (35-66) Band Neutrophils % 2% (0-9) Lymphocytes % 17% (24-48) Monocytes % 12% (0-10) Eosinophils % 6% (0-5) Myelocytes % 1% (0-0) Platelet Estimate Increased (ADEQUATE) Medications Current Medications Iohexol (Omnipaque 300 Mg/ml) 75 ml 1X ONCE IV Last administered on 05/13/16 15:11; Start 05/13/16 at 15:15; Stop 05/13/16 at 15:16; Status DC Info (Do NOT chart on this entry -- for MONITORING) 1 each PRN DAILY PRN MC SEE COMMENTS; Start 05/13/16 at 15:15; Stop 05/15/16 at 15:14 Levofloxacin/ Dextrose 1 each 1 each PRN DAILY PRN MC SEE COMMENTS; Start at 16:15 Levofloxacin/ Dextrose (LEVAQUIN 750mg PREMIX) 150 ml @ 100 mls/hr 1X ONCE IV Last administered on 05/13/16 17:10; Start 05/13/16 at 16:45; Stop 05/13/16 at 18:14; Status DC Vancomycin HCl (Vanco Per Pharmacy) 1 each PRN DAILY PRN MC SEE COMMENTS Last administered on 05/13/16 18:46; Start 05/13/16 at 16:30 Piperacillin Sod/ Tazobactam Sod 1 each 1 each PRN DAILY PRN MC SEE COMMENTS; Start 05/13/16 at 16:30 Vancomycin HCl 2 gm/Sodium Chloride 500 ml @ 250 mls/hr 1X ONCE IV Last administered on 05/13/16 20:30; Start 05/13/16 at 17:00; Stop 05/13/16 at 18:59; Status DC Piperacillin Sod/ Tazobactam Sod/ Sodium Chloride (Zosyn/Iv Sodium Chloride 0.9 % 100ml) 100 ml @ 200 mls/hr 1X ONCE IV Last administered on 05/13/16 19:53; Start 05/13/16 at 17:00; Stop 05/13/16 at 17:29; Status DC Ondansetron HCl (Zofran) 4 mg PRN Q8HRS PRN IV NAUSEA/VOMITING; Start 05/13/16 at 17:00; Stop 05/14/16 at 16:59 Fentanyl Citrate 50 mcg 50 mcg PRN Q2HR PRN IV PAIN Last administered on 04:40; Start 05/13/16 at 17:00; Stop 05/14/16 at 16:59 Levofloxacin/ Dextrose 150 ml @ 100 mls/hr Q24H IV ; Start 05/14/16 at 17:00 Piperacillin Sod/ Tazobactam Sod/ Sodium Chloride (Zosyn/Iv Sodium Chloride 0.9 % 100ml) 100 ml @ 200 mls/hr Q6HRS IV Last administered on 05/14/16 06:39; Start 05/14/16 at 00:00 Acetaminophen (Tylenol) 325 mg PRN Q6HRS PRN PO MILD PAIN / TEMP; Start at 18:45 Acetaminophen/ Hydrocodone Bitart (Lortab 5/325) 1 tab PRN Q6HRS PRN PO MODERATE TO SEVERE PAIN Last administered on 05/13/16 22:49; Start 05/13/16 at 18 :45 Hydralazine HCl (Apresoline) 10 mg PRN Q4HRS PRN IVP ELEVATED BP, SEE COMMENTS ; Start 05/13/16 at 18:45 Ondansetron HCl (Zofran) 4 mg PRN Q8HRS PRN IV NAUSEA/VOMITING; Start 05/13/16 at 18:45 Albuterol Sulfate 2.5 mg 2.5 mg PRN Q4HRS PRN NEB SHORTNESS OF BREATH Last administered on 05/14/16 09:42; Start 05/13/16 at 18:45 Vancomycin HCl/ Sodium Chloride (Iv Sodium Chloride 0.9% 250ml) 250 ml @ 167 mls/hr Q12H IV Last administered on 05/14/16 08:28; Start 05/14/16 at 08:00 Vancomycin HCl 1 each 1 each 1X ONCE MC ; Start 05/14/16 at 19:30; Stop 05/14/16 at 19:31 Piperacillin Sod/ Tazobactam Sod/ Sodium Chloride (Zosyn/Iv Sodium Chloride 0.9 % 50ml) 50 ml @ 100 mls/hr Q6HRS IV ; Start 05/14/16 at 00:00; Stop 05/14/16 at 00:00; Status DC Paroxetine HCl (Paxil) 40 mg DAILY PO ; Start 05/14/16 at 09:00 Trazodone HCl (Desyrel) 100 mg QHS PO Last administered on 05/13/16 22:50; Start 05/13/16 at 23:00 Alprazolam (Xanax) 1 mg TID PO Last administered on 05/13/16 22:49; Start at 23:00 Paroxetine HCl (Paxil) 20 mg QHS PO Last administered on 05/13/16 22:51; Start 05/13/16 at 23:00 Aspirin (Children'S Aspirin) 81 mg DAILY PO ; Start 05/14/16 at 09:00 Celecoxib (Celebrex) 200 mg BID PO ; Start 05/14/16 at 09:00 Metoclopramide HCl (Reglan) 5 mg PRN TID PRN PO HEARTBURN / GAS; Start 05/14/16 at 05:00 Pantoprazole Sodium (Protonix) 40 mg DAILYAC PO ; Start 05/14/16 at 07:30 Acyclovir (Zovirax) 400 mg DAILY08 PO ; Start 05/14/16 at 08:00 Meclizine HCl (Antivert) 25 mg PRN TID PRN PO DIZZINESS; Start 05/14/16 at 05:00 Non-Formulary Medication 1 tab 1 tab DAILY08 PO ; Start 05/14/16 at 08:00; Status UNV Lactated Ringer's (Iv Lactated Ringers) 1,000 ml @ 100 mls/hr Q10H IV Last administered on 05/14/16 10:04; Start 05/14/16 at 10:00 Midazolam HCl 2 mg 2 mg STK-MED ONCE .ROUTE ; Start 05/14/16 at 09:37; Stop at 09:38; Status DC Propofol (Diprivan) 20 ml @ As Directed STK-MED ONCE IV ; Start 05/14/16 at 09:38 ; Stop 05/14/16 at 09:39; Status DC Epinephrine HCl 1 mg STK-MED ONCE .ROUTE ; Start 05/14/16 at 10:10; Stop 05/14/16 at 10:11; Status DC Active Scripts Active Reported Metoclopramide Hcl 5 Mg Tablet 5 Mg PO TID PRN Meclizine Hcl 25 Mg Tablet 1 Tab PO PRN TID Pantoprazole Sodium 40 Mg Tablet.dr 1 Tab PO DAILY Acyclovir 400 Mg Tablet 1 Tab PO DAILY08 Aspirin 81 Mg Tab.chew 1 Tab PO DAILY Celebrex (Celecoxib) 200 Mg Capsule 200 Mg PO BID 30 Days Hydrocodone-Apap 7.5-325 (Hydrocodone Bit/Acetaminophen) 1 Each Tablet 1 Tab PO Q8HRS Xanax (Alprazolam) 1 Mg Tablet 1 Tab PO TID Trazodone Hcl 50 Mg Tablet 2 Tab PO QHS Paxil (Paroxetine Hcl) 20 Mg Tablet 1 Tab PO DAILY Paxil (Paroxetine Hcl) 40 Mg Tablet 1 Tab PO DAILY08 Vitals/I & O Vital Sign - Last 24 Hours 05/13/16 05/13/16 05/13/16 05/13/16 12:25 15:39 16:05 16:35 Temp 97.5 97.5 Pulse 66 70 70 68 Resp 13 20 B/P 148/109 135/86 112/57 92/55 Pulse Ox 92 98 97 98 O2 Delivery Room Air Nasal Cannula Nasal Cannula Nasal Cannula O2 Flow Rate 2 2 2 05/13/16 05/13/16 05/13/16 05/13/16 17:10 17:35 18:05 18:30 Pulse 70 70 74 Resp 15 B/P 106/56 99/55 108/71 Pulse Ox 96 97 96 O2 Delivery Nasal Cannula Nasal Cannula Nasal Cannula Nasal Cannula O2 Flow Rate 2.0 2 2 2 05/13/16 05/13/16 05/13/16 05/13/16 19:55 20:00 20:31 22:49 Temp 98.1 98.1 Pulse 70 Resp 16 16 B/P 129/63 Pulse Ox 93 O2 Delivery Nasal Cannula Nasal Cannula Nasal Cannula Nasal Cannula O2 Flow Rate 2.0 2.0 2.0 2.0 05/13/16 05/13/16 05/14/16 05/14/16 23:35 23:45 00:47 03:46 Temp 97.3 97.7 97.3 97.7 Pulse 71 74 Resp 16 17 15 16 B/P 90/45 90/51 Pulse Ox 99 90 O2 Delivery Nasal Cannula Nasal Cannula Nasal Cannula Room Air O2 Flow Rate 2.0 2.0 2.0 05/14/16 05/14/16 05/14/16 05/14/16 04:40 05:10 07:45 07:57 Temp 97.5 97.5 Pulse 67 Resp 16 15 16 B/P 92/51 Pulse Ox 96 98 O2 Delivery Nasal Cannula Nasal Cannula Room Air Nasal Cannula O2 Flow Rate 2.0 2.0 2.0 05/14/16 05/14/16 05/14/16 09:30 10:20 10:35 Temp 97.8 97.0 97.8 97.0 Pulse 87 91 90 Resp 20 20 18 B/P 121/63 103/84 Pulse Ox 97 98 98 O2 Delivery Simple Mask Simple Mask O2 Flow Rate 6 6 Intake and Output 05/13/16 05/13/16 05/14/16 15:00 23:00 07:00 Intake Total 150 ml 650 ml Balance 150 ml 650 ml KARMA ALVARADO III DO May 14, 2016 12:02
[2016-05-14] MEDS: VANCOMYCIN PER PHARMACY MC PRN ×2 (14:07→19:57)
[2016-05-14] MEDS: traZODone 100 MG TABLET. PO SCH (21:00)
[2016-05-15] VITALS (7 sets, daily range): BP systolic 90–150; BP diastolic 47–75
[2016-05-15] MEDS: IV RINGERS,LACTATED 1000ML 1,000 ML IV SCH ×2 (06:00→20:48)
[2016-05-15] MEDS: PIPERACILLIN/TAZOBACTAM 4.5 GM in IV NORMAL SALINE 100ML 100 ML IV SCH ×3 (06:19→17:23)
--- NOTE | 2016-05-15 07:38 | RAD ---
Portable AP upright view CXR: 2200 Clinical indications: PICC line insertion. Comparison: Same day performed at 2158 IMPRESSION: A right upper extremity PICC line is in place and the tip is seen within the lower SVC just above the junction with the right atrium. Again seen is diffuse right upper lobe consolidation.
--- NOTE | 2016-05-15 07:39 | RAD ---
Portable AP semierect upright chest x-ray performed at 2158 Clinical indications: PICC line insertion. Comparison: May 12, 2016. IMPRESSION: A right upper extremity PICC line is in place and the tip is seen within the right atrium. Dense right upper lobe consolidation is again seen and is unchanged.
[2016-05-15 07:58] LABS: BASO # 0.1 x10^3/uL (0.0-0.2); BASO % 1 % (0-3); EOS % 2 % (0-3); HEMOGLOBIN 10.4 g/dL (12.0-15.5); LYMPH # 1.7 x10^3/uL (1.0-4.8); LYMPH % 24 % (24-48); MEAN CORPUSCULAR HEMOGLOBIN 32 pg (25-35); MEAN CORPUSCULAR HGB CONC 33 g/dL (31-37); MEAN CORPUSCULAR VOLUME 97 fL (79-100); MONO % 8 % (0-9); NEUT % 65 % (31-73); PLATELET COUNT 419 x10^3/uL (140-400); RED CELL DISTRIBUTION WIDTH 14.2 % (11.5-14.5); WHITE BLOOD COUNT 7.1 x10^3/uL (4.0-11.0)
[2016-05-15] MEDS ORDERED: VANCOMYCIN 1.25 GM in IV NORMAL SALINE 250ML 250 ML IV SCH (08:00)
[2016-05-15 08:21] LABS: CREATININE 0.7 mg/dL (0.6-1.0); GFR 84.2; POTASSIUM 3.6 mmol/L (3.5-5.1)
[2016-05-15] MEDS: ASPIRIN 81 MG TAB.CHEW PO SCH (09:16)
[2016-05-15] MEDS: PANTOPRAZOLE 40 MG TABLET. PO SCH (09:17)
[2016-05-15] MEDS: ACYCLOVIR 200 MG CAPSULE PO SCH (09:17)
[2016-05-15] MEDS: ALPRAZOLAM 1 MG TABLET PO SCH ×4 (09:17→20:44)
[2016-05-15] MEDS: CELECOXIB 200 MG CAPSULE PO SCH ×2 (09:17→20:43)
[2016-05-15] MEDS: PAROXETINE 20 MG TABLET. PO SCH ×2 (09:17→20:43)
[2016-05-15] MEDS ORDERED: BARIUM SULFATE 40% (APPLE) 148 GM PWD. PO ONE (10:15)
--- NOTE | 2016-05-15 11:14 | PDOC ---
PULMONARY PROGRESS NOTES Subjective no soa Vitals Vital Signs Date Time Temp Pulse Resp B/P Pulse Ox O2 Delivery O2 Flow Rate FiO2 05/15/16 07:00 97.9 72 18 107/52 98 Room Air 97.9 05/14/16 20:00 3.0 General: Alert Lungs: Other (decrease bs) Cardiovascular: S1 Abdomen: Soft Extremities: No Edema Skin: Warm Labs Laboratory Tests Test 05/13/16 13:55 05/13/16 17:00 05/14/16 05:30 05/14/16 07:00 White Blood Count 9.3x10^3/uL (4.0-11.0) 8.0x10^3/uL (4.0-11.0) Red Blood Count 3.92x10^6/uL (3.50-5.40) 3.43x10^6/uL (3.50-5.40) Hemoglobin 12.6g/dL (12.0-15.5) 11.1g/dL (12.0-15.5) Hematocrit 38.1% (36.0-47.0) 33.3% (36.0-47.0) Mean Corpuscular Volume 97fL (79-100) 97fL (79-100) Mean Corpuscular Hemoglobin 32pg (25-35) 32pg (25-35) Mean Corpuscular Hemoglobin Concent 33g/dL (31-37) 33g/dL (31-37) Red Cell Distribution Width 14.5% (11.5-14.5) 14.4% (11.5-14.5) Platelet Count 591x10^3/uL (140-400) 492x10^3/uL (140-400) Neutrophils (%) (Auto) 71% (31-73) 66% (31-73) Lymphocytes (%) (Auto) 19% (24-48) 22% (24-48) Monocytes (%) (Auto) 6% (0-9) 9% (0-9) Eosinophils (%) (Auto) 3% (0-3) 3% (0-3) Basophils (%) (Auto) 1% (0-3) 1% (0-3) Neutrophils # (Auto) 6.6x10^3uL (1.8-7.7) 5.3x10^3uL (1.8-7.7) Lymphocytes # (Auto) 1.7x10^3/uL (1.0-4.8) 1.8x10^3/uL (1.0-4.8) Monocytes # (Auto) 0.6x10^3/uL (0.0-1.1) 0.7x10^3/uL (0.0-1.1) Eosinophils # (Auto) 0.3x10^3/uL (0.0-0.7) 0.2x10^3/uL (0.0-0.7) Basophils # (Auto) 0.1x10^3/uL (0.0-0.2) 0.1x10^3/uL (0.0-0.2) Prothrombin Time 13.6SEC (11.7-14.0) Prothromb Time International Ratio 1.1 (0.8-1.1) Sodium Level 139mmol/L (136-145) 141mmol/L (136-145) Potassium Level 5.2mmol/L (3.5-5.1) 4.3mmol/L (3.5-5.1) Chloride Level 100mmol/L (98-107) 105mmol/L (98-107) Carbon Dioxide Level 35mmol/L (21-32) 31mmol/L (21-32) Anion Gap 4 (6-14) 5 (6-14) Blood Urea Nitrogen 16mg/dL (7-20) 12mg/dL (7-20) Creatinine 0.8mg/dL (0.6-1.0) 0.6mg/dL (0.6-1.0) Estimated GFR (Cockcroft-Gault) 72.2 100.6 BUN/Creatinine Ratio 20 (6-20) Glucose Level 134mg/dL (70-99) 109mg/dL (70-99) Lactic Acid Level 1.9mmol/L (0.4-2.0) Calcium Level 9.8mg/dL (8.5-10.1) 8.0mg/dL (8.5-10.1) Total Bilirubin 0.4mg/dL (0.2-1.0) Aspartate Amino Transf (AST/SGOT) 37U/L (15-37) Alanine Aminotransferase (ALT/SGPT) 43U/L (14-59) Alkaline Phosphatase 121U/L (46-116) Troponin I Quantitative < 0.017ng/mL (0.000-0.055) Total Protein 8.1g/dL (6.4-8.2) Albumin 2.6g/dL (3.4-5.0) Albumin/Globulin Ratio 0.5 (1.0-1.7) O2 Saturation 96% (92-99) Arterial Blood pH 7.41 (7.35-7.45) Arterial Blood pCO2 at Patient Temp 52mmHg (35-46) Arterial Blood pO2 at Patient Temp 87mmHg (65-108) Arterial Blood HCO3 32mmol/L (21-28) Arterial Blood Base Excess 6mmol/L (-3-3) FiO2 28.0 Segmented Neutrophils % 62% (35-66) Band Neutrophils % 2% (0-9) Lymphocytes % 17% (24-48) Monocytes % 12% (0-10) Eosinophils % 6% (0-5) Myelocytes % 1% (0-0) Platelet Estimate Increased (ADEQUATE) Test 05/14/16 19:15 05/15/16 07:45 Vancomycin Level Trough 23.9mcg/mL (10.0-20.0) Vancomycin Last Dose Date 05/14/2016 Vancomycin Last Dose Time 0800 White Blood Count 7.1x10^3/uL (4.0-11.0) Red Blood Count 3.20x10^6/uL (3.50-5.40) Hemoglobin 10.4g/dL (12.0-15.5) Hematocrit 31.0% (36.0-47.0) Mean Corpuscular Volume 97fL (79-100) Mean Corpuscular Hemoglobin 32pg (25-35) Mean Corpuscular Hemoglobin Concent 33g/dL (31-37) Red Cell Distribution Width 14.2% (11.5-14.5) Platelet Count 419x10^3/uL (140-400) Neutrophils (%) (Auto) 65% (31-73) Lymphocytes (%) (Auto) 24% (24-48) Monocytes (%) (Auto) 8% (0-9) Eosinophils (%) (Auto) 2% (0-3) Basophils (%) (Auto) 1% (0-3) Neutrophils # (Auto) 4.6x10^3uL (1.8-7.7) Lymphocytes # (Auto) 1.7x10^3/uL (1.0-4.8) Monocytes # (Auto) 0.6x10^3/uL (0.0-1.1) Eosinophils # (Auto) 0.2x10^3/uL (0.0-0.7) Basophils # (Auto) 0.1x10^3/uL (0.0-0.2) Sodium Level 143mmol/L (136-145) Potassium Level 3.6mmol/L (3.5-5.1) Chloride Level 105mmol/L (98-107) Carbon Dioxide Level 31mmol/L (21-32) Anion Gap 7 (6-14) Blood Urea Nitrogen 9mg/dL (7-20) Creatinine 0.7mg/dL (0.6-1.0) Estimated GFR (Cockcroft-Gault) 84.2 Glucose Level 116mg/dL (70-99) Calcium Level 8.0mg/dL (8.5-10.1) Laboratory Tests Test 05/14/16 19:15 05/15/16 07:45 Vancomycin Level Trough 23.9mcg/mL (10.0-20.0) Vancomycin Last Dose Date 05/14/2016 Vancomycin Last Dose Time 0800 White Blood Count 7.1x10^3/uL (4.0-11.0) Red Blood Count 3.20x10^6/uL (3.50-5.40) Hemoglobin 10.4g/dL (12.0-15.5) Hematocrit 31.0% (36.0-47.0) Mean Corpuscular Volume 97fL (79-100) Mean Corpuscular Hemoglobin 32pg (25-35) Mean Corpuscular Hemoglobin Concent 33g/dL (31-37) Red Cell Distribution Width 14.2% (11.5-14.5) Platelet Count 419x10^3/uL (140-400) Neutrophils (%) (Auto) 65% (31-73) Lymphocytes (%) (Auto) 24% (24-48) Monocytes (%) (Auto) 8% (0-9) Eosinophils (%) (Auto) 2% (0-3) Basophils (%) (Auto) 1% (0-3) Neutrophils # (Auto) 4.6x10^3uL (1.8-7.7) Lymphocytes # (Auto) 1.7x10^3/uL (1.0-4.8) Monocytes # (Auto) 0.6x10^3/uL (0.0-1.1) Eosinophils # (Auto) 0.2x10^3/uL (0.0-0.7) Basophils # (Auto) 0.1x10^3/uL (0.0-0.2) Sodium Level 143mmol/L (136-145) Potassium Level 3.6mmol/L (3.5-5.1) Chloride Level 105mmol/L (98-107) Carbon Dioxide Level 31mmol/L (21-32) Anion Gap 7 (6-14) Blood Urea Nitrogen 9mg/dL (7-20) Creatinine 0.7mg/dL (0.6-1.0) Estimated GFR (Cockcroft-Gault) 84.2 Glucose Level 116mg/dL (70-99) Calcium Level 8.0mg/dL (8.5-10.1) Medications Active Scripts Medications Dose Route/Sig Days Date Category Metoclopramide Hcl 5 Mg Tablet 5 Mg PO TID PRN 05/14/16 Reported Meclizine Hcl 25 Mg Tablet 1 Tab PO PRN TID 05/14/16 Reported Pantoprazole Sodium 40 Mg Tablet.dr 1 Tab PO DAILY 05/14/16 Reported Acyclovir 400 Mg Tablet 1 Tab PO DAILY08 05/14/16 Reported Aspirin 81 Mg Tab.chew 1 Tab PO DAILY 05/14/16 Reported Celebrex (Celecoxib) 200 Mg Capsule 200 Mg PO BID 30 05/14/16 Reported Hydrocodone-Apap 7.5-325 (Hydrocodone Bit/Acetaminophen) 1 Each Tablet 1 Tab PO Q8HRS 05/13/16 Reported Xanax (Alprazolam) 1 Mg Tablet 1 Tab PO TID 05/13/16 Reported Trazodone Hcl 50 Mg Tablet 2 Tab PO QHS 05/13/16 Reported Paxil (Paroxetine Hcl) 20 Mg Tablet 1 Tab PO DAILY 05/13/16 Reported Paxil (Paroxetine Hcl) 40 Mg Tablet 1 Tab PO DAILY08 05/13/16 Reported Impression . 1. Right upper lobe consolidation with postobstructive process. This patient has been coughing for 6 months. The cough is also usually associated with food. s/p Bronch/ endobronchial lesion RUL/ awaiting biopsy 2. No significant history of tobacco use. 3. Acute hypoxic respiratory failure secondary to above. 4. Moderate protein-calorie malnutrition. 5. Dwarfism. Plan . 1. follow bronchoscopy results 2. antibiotic coverage with vancomycin and Zosyn. 3. Speech consult with video swallow to rule out chronic aspiration. 4. Bronchodilators. 5. We will followup chest x-rays in few days. 6. Further recommendations to follow. HEIDI LONGORIA MD May 15, 2016 11:14
--- NOTE | 2016-05-15 11:40 | PDOC ---
PROGRESS NOTES Chief Complaint Chief Complaint 1. Right upper lobe infiltrate 2. Hypoxic respiratory failure. 3. Chronic back pain. 4. Mild hyperkalemia. 5. Thrombocytosis. 6. Hypertension. 7. Dwarfism History of Present Illness History of Present Illness Pt doing well this AM. Still has complaint of mild cough associated with some SOB. The pt is still having to use the Nasal Cannula at this time and stated she does not normally wear oxygen at home. She also had some complaints of weakness and fatigue but stated she is able to get up with some assistance. [facility] Team- VSS; Awaiting Bx results from diagnostic Bronchoscopy at this time Vitals Vitals Vital Signs Date Time Temp Pulse Resp B/P Pulse Ox O2 Delivery O2 Flow Rate FiO2 05/15/16 08:00 Nasal Cannula 3.0 05/15/16 07:00 97.9 72 18 107/52 98 97.9 Physical Exam General: Alert, Oriented X3, Cooperative, No acute distress Heart: Regular rate, No murmurs Lungs: Other (decrease bs) Abdomen: Soft, No tenderness Extremities: No cyanosis, No edema Skin: No rashes, No breakdown Labs LABS Laboratory Tests Test 05/14/16 19:15 05/15/16 07:45 Vancomycin Level Trough 23.9mcg/mL (10.0-20.0) Vancomycin Last Dose Date 05/14/2016 Vancomycin Last Dose Time 0800 White Blood Count 7.1x10^3/uL (4.0-11.0) Red Blood Count 3.20x10^6/uL (3.50-5.40) Hemoglobin 10.4g/dL (12.0-15.5) Hematocrit 31.0% (36.0-47.0) Mean Corpuscular Volume 97fL (79-100) Mean Corpuscular Hemoglobin 32pg (25-35) Mean Corpuscular Hemoglobin Concent 33g/dL (31-37) Red Cell Distribution Width 14.2% (11.5-14.5) Platelet Count 419x10^3/uL (140-400) Neutrophils (%) (Auto) 65% (31-73) Lymphocytes (%) (Auto) 24% (24-48) Monocytes (%) (Auto) 8% (0-9) Eosinophils (%) (Auto) 2% (0-3) Basophils (%) (Auto) 1% (0-3) Neutrophils # (Auto) 4.6x10^3uL (1.8-7.7) Lymphocytes # (Auto) 1.7x10^3/uL (1.0-4.8) Monocytes # (Auto) 0.6x10^3/uL (0.0-1.1) Eosinophils # (Auto) 0.2x10^3/uL (0.0-0.7) Basophils # (Auto) 0.1x10^3/uL (0.0-0.2) Sodium Level 143mmol/L (136-145) Potassium Level 3.6mmol/L (3.5-5.1) Chloride Level 105mmol/L (98-107) Carbon Dioxide Level 31mmol/L (21-32) Anion Gap 7 (6-14) Blood Urea Nitrogen 9mg/dL (7-20) Creatinine 0.7mg/dL (0.6-1.0) Estimated GFR (Cockcroft-Gault) 84.2 Glucose Level 116mg/dL (70-99) Calcium Level 8.0mg/dL (8.5-10.1) Review of Systems Review of Systems Complaining of Weakness Complaining of Fatigue Complaining of SOB Complaining of Cough Assessment and Plan Assessmemt and Plan Problems Medical Problems: (1) Community acquired pneumonia Status: Acute (2) Hypoxia Status: Acute (3) Lung neoplasm Status: Acute 1. Right upper lobe infiltrate 2. Hypoxic respiratory failure. 3. Chronic back pain. 4. Mild hyperkalemia. 5. Thrombocytosis. 6. Hypertension. 7. Dwarfism Plan - Awaiting results of Dx Bronchoscopy/Further Recommendations from Pulm - Appreciater Recommendations from pulm - Will continue Vancomycin and Zosyn as recommended - Continue Supplemental 02 with Nasal Cannula as needed - Speech/Swallow Evaluation: per nursing note able to swallow pills and liquids - PT/OT on case to eval and treat as needed - Home Medications resumed at this time - Fentanyl PRN Order in place still for pain Problems: Comment Review of Relevant I have reviewed the following items ginger (where applicable) has been applied. Labs Laboratory Tests Test 05/13/16 13:55 05/13/16 17:00 05/14/16 05:30 05/14/16 07:00 White Blood Count 9.3x10^3/uL (4.0-11.0) 8.0x10^3/uL (4.0-11.0) Red Blood Count 3.92x10^6/uL (3.50-5.40) 3.43x10^6/uL (3.50-5.40) Hemoglobin 12.6g/dL (12.0-15.5) 11.1g/dL (12.0-15.5) Hematocrit 38.1% (36.0-47.0) 33.3% (36.0-47.0) Mean Corpuscular Volume 97fL (79-100) 97fL (79-100) Mean Corpuscular Hemoglobin 32pg (25-35) 32pg (25-35) Mean Corpuscular Hemoglobin Concent 33g/dL (31-37) 33g/dL (31-37) Red Cell Distribution Width 14.5% (11.5-14.5) 14.4% (11.5-14.5) Platelet Count 591x10^3/uL (140-400) 492x10^3/uL (140-400) Neutrophils (%) (Auto) 71% (31-73) 66% (31-73) Lymphocytes (%) (Auto) 19% (24-48) 22% (24-48) Monocytes (%) (Auto) 6% (0-9) 9% (0-9) Eosinophils (%) (Auto) 3% (0-3) 3% (0-3) Basophils (%) (Auto) 1% (0-3) 1% (0-3) Neutrophils # (Auto) 6.6x10^3uL (1.8-7.7) 5.3x10^3uL (1.8-7.7) Lymphocytes # (Auto) 1.7x10^3/uL (1.0-4.8) 1.8x10^3/uL (1.0-4.8) Monocytes # (Auto) 0.6x10^3/uL (0.0-1.1) 0.7x10^3/uL (0.0-1.1) Eosinophils # (Auto) 0.3x10^3/uL (0.0-0.7) 0.2x10^3/uL (0.0-0.7) Basophils # (Auto) 0.1x10^3/uL (0.0-0.2) 0.1x10^3/uL (0.0-0.2) Prothrombin Time 13.6SEC (11.7-14.0) Prothromb Time International Ratio 1.1 (0.8-1.1) Sodium Level 139mmol/L (136-145) 141mmol/L (136-145) Potassium Level 5.2mmol/L (3.5-5.1) 4.3mmol/L (3.5-5.1) Chloride Level 100mmol/L (98-107) 105mmol/L (98-107) Carbon Dioxide Level 35mmol/L (21-32) 31mmol/L (21-32) Anion Gap 4 (6-14) 5 (6-14) Blood Urea Nitrogen 16mg/dL (7-20) 12mg/dL (7-20) Creatinine 0.8mg/dL (0.6-1.0) 0.6mg/dL (0.6-1.0) Estimated GFR (Cockcroft-Gault) 72.2 100.6 BUN/Creatinine Ratio 20 (6-20) Glucose Level 134mg/dL (70-99) 109mg/dL (70-99) Lactic Acid Level 1.9mmol/L (0.4-2.0) Calcium Level 9.8mg/dL (8.5-10.1) 8.0mg/dL (8.5-10.1) Total Bilirubin 0.4mg/dL (0.2-1.0) Aspartate Amino Transf (AST/SGOT) 37U/L (15-37) Alanine Aminotransferase (ALT/SGPT) 43U/L (14-59) Alkaline Phosphatase 121U/L (46-116) Troponin I Quantitative < 0.017ng/mL (0.000-0.055) Total Protein 8.1g/dL (6.4-8.2) Albumin 2.6g/dL (3.4-5.0) Albumin/Globulin Ratio 0.5 (1.0-1.7) O2 Saturation 96% (92-99) Arterial Blood pH 7.41 (7.35-7.45) Arterial Blood pCO2 at Patient Temp 52mmHg (35-46) Arterial Blood pO2 at Patient Temp 87mmHg (65-108) Arterial Blood HCO3 32mmol/L (21-28) Arterial Blood Base Excess 6mmol/L (-3-3) FiO2 28.0 Segmented Neutrophils % 62% (35-66) Band Neutrophils % 2% (0-9) Lymphocytes % 17% (24-48) Monocytes % 12% (0-10) Eosinophils % 6% (0-5) Myelocytes % 1% (0-0) Platelet Estimate Increased (ADEQUATE) Test 05/14/16 19:15 05/15/16 07:45 Vancomycin Level Trough 23.9mcg/mL (10.0-20.0) Vancomycin Last Dose Date 05/14/2016 Vancomycin Last Dose Time 0800 White Blood Count 7.1x10^3/uL (4.0-11.0) Red Blood Count 3.20x10^6/uL (3.50-5.40) Hemoglobin 10.4g/dL (12.0-15.5) Hematocrit 31.0% (36.0-47.0) Mean Corpuscular Volume 97fL (79-100) Mean Corpuscular Hemoglobin 32pg (25-35) Mean Corpuscular Hemoglobin Concent 33g/dL (31-37) Red Cell Distribution Width 14.2% (11.5-14.5) Platelet Count 419x10^3/uL (140-400) Neutrophils (%) (Auto) 65% (31-73) Lymphocytes (%) (Auto) 24% (24-48) Monocytes (%) (Auto) 8% (0-9) Eosinophils (%) (Auto) 2% (0-3) Basophils (%) (Auto) 1% (0-3) Neutrophils # (Auto) 4.6x10^3uL (1.8-7.7) Lymphocytes # (Auto) 1.7x10^3/uL (1.0-4.8) Monocytes # (Auto) 0.6x10^3/uL (0.0-1.1) Eosinophils # (Auto) 0.2x10^3/uL (0.0-0.7) Basophils # (Auto) 0.1x10^3/uL (0.0-0.2) Sodium Level 143mmol/L (136-145) Potassium Level 3.6mmol/L (3.5-5.1) Chloride Level 105mmol/L (98-107) Carbon Dioxide Level 31mmol/L (21-32) Anion Gap 7 (6-14) Blood Urea Nitrogen 9mg/dL (7-20) Creatinine 0.7mg/dL (0.6-1.0) Estimated GFR (Cockcroft-Gault) 84.2 Glucose Level 116mg/dL (70-99) Calcium Level 8.0mg/dL (8.5-10.1) Laboratory Tests Test 05/14/16 19:15 05/15/16 07:45 Vancomycin Level Trough 23.9mcg/mL (10.0-20.0) Vancomycin Last Dose Date 05/14/2016 Vancomycin Last Dose Time 0800 White Blood Count 7.1x10^3/uL (4.0-11.0) Red Blood Count 3.20x10^6/uL (3.50-5.40) Hemoglobin 10.4g/dL (12.0-15.5) Hematocrit 31.0% (36.0-47.0) Mean Corpuscular Volume 97fL (79-100) Mean Corpuscular Hemoglobin 32pg (25-35) Mean Corpuscular Hemoglobin Concent 33g/dL (31-37) Red Cell Distribution Width 14.2% (11.5-14.5) Platelet Count 419x10^3/uL (140-400) Neutrophils (%) (Auto) 65% (31-73) Lymphocytes (%) (Auto) 24% (24-48) Monocytes (%) (Auto) 8% (0-9) Eosinophils (%) (Auto) 2% (0-3) Basophils (%) (Auto) 1% (0-3) Neutrophils # (Auto) 4.6x10^3uL (1.8-7.7) Lymphocytes # (Auto) 1.7x10^3/uL (1.0-4.8) Monocytes # (Auto) 0.6x10^3/uL (0.0-1.1) Eosinophils # (Auto) 0.2x10^3/uL (0.0-0.7) Basophils # (Auto) 0.1x10^3/uL (0.0-0.2) Sodium Level 143mmol/L (136-145) Potassium Level 3.6mmol/L (3.5-5.1) Chloride Level 105mmol/L (98-107) Carbon Dioxide Level 31mmol/L (21-32) Anion Gap 7 (6-14) Blood Urea Nitrogen 9mg/dL (7-20) Creatinine 0.7mg/dL (0.6-1.0) Estimated GFR (Cockcroft-Gault) 84.2 Glucose Level 116mg/dL (70-99) Calcium Level 8.0mg/dL (8.5-10.1) Microbiology 05/13/16 Blood Culture - Preliminary, Resulted NO GROWTH AFTER 1 DAY Medications Current Medications Iohexol (Omnipaque 300 Mg/ml) 75 ml 1X ONCE IV Last administered on 05/13/16 15:11; Start 05/13/16 at 15:15; Stop 05/13/16 at 15:16; Status DC Info (Do NOT chart on this entry -- for MONITORING) 1 each PRN DAILY PRN MC SEE COMMENTS; Start 05/13/16 at 15:15; Stop 05/15/16 at 15:14 Levofloxacin/ Dextrose 1 each 1 each PRN DAILY PRN MC SEE COMMENTS; Start at 16:15 Levofloxacin/ Dextrose (LEVAQUIN 750mg PREMIX) 150 ml @ 100 mls/hr 1X ONCE IV Last administered on 05/13/16 17:10; Start 05/13/16 at 16:45; Stop 05/13/16 at 18:14; Status DC Vancomycin HCl (Vanco Per Pharmacy) 1 each PRN DAILY PRN MC SEE COMMENTS Last administered on 05/14/16 19:57; Start 05/13/16 at 16:30 Piperacillin Sod/ Tazobactam Sod 1 each 1 each PRN DAILY PRN MC SEE COMMENTS; Start 05/13/16 at 16:30 Vancomycin HCl 2 gm/Sodium Chloride 500 ml @ 250 mls/hr 1X ONCE IV Last administered on 05/13/16 20:30; Start 05/13/16 at 17:00; Stop 05/13/16 at 18:59; Status DC Piperacillin Sod/ Tazobactam Sod/ Sodium Chloride (Zosyn/Iv Sodium Chloride 0.9 % 100ml) 100 ml @ 200 mls/hr 1X ONCE IV Last administered on 05/13/16 19:53; Start 05/13/16 at 17:00; Stop 05/13/16 at 17:29; Status DC Ondansetron HCl (Zofran) 4 mg PRN Q8HRS PRN IV NAUSEA/VOMITING; Start 05/13/16 at 17:00; Stop 05/14/16 at 16:59; Status DC Fentanyl Citrate 50 mcg 50 mcg PRN Q2HR PRN IV PAIN Last administered on 12:04; Start 05/13/16 at 17:00; Stop 05/14/16 at 16:59; Status DC Levofloxacin/ Dextrose 150 ml @ 100 mls/hr Q24H IV ; Start 05/14/16 at 17:00; Stop 05/15/16 at 11:13; Status DC Piperacillin Sod/ Tazobactam Sod/ Sodium Chloride (Zosyn/Iv Sodium Chloride 0.9 % 100ml) 100 ml @ 200 mls/hr Q6HRS IV Last administered on 05/15/16 06:19; Start 05/14/16 at 00:00 Acetaminophen (Tylenol) 325 mg PRN Q6HRS PRN PO MILD PAIN / TEMP; Start at 18:45 Acetaminophen/ Hydrocodone Bitart (Lortab 5/325) 1 tab PRN Q6HRS PRN PO MODERATE TO SEVERE PAIN Last administered on 05/13/16 22:49; Start 05/13/16 at 18 :45 Hydralazine HCl (Apresoline) 10 mg PRN Q4HRS PRN IVP ELEVATED BP, SEE COMMENTS ; Start 05/13/16 at 18:45 Ondansetron HCl (Zofran) 4 mg PRN Q8HRS PRN IV NAUSEA/VOMITING; Start 05/13/16 at 18:45 Albuterol Sulfate 2.5 mg 2.5 mg PRN Q4HRS PRN NEB SHORTNESS OF BREATH Last administered on 05/14/16 09:42; Start 05/13/16 at 18:45 Vancomycin HCl/ Sodium Chloride (Iv Sodium Chloride 0.9% 250ml) 250 ml @ 167 mls/hr Q12H IV Last administered on 05/14/16 08:28; Start 05/14/16 at 08:00; Stop 05/14/16 at 19:51; Status DC Vancomycin HCl 1 each 1 each 1X ONCE MC Last administered on 05/14/16 19:30; Start 05/14/16 at 19:30; Stop 05/14/16 at 19:31; Status DC Piperacillin Sod/ Tazobactam Sod/ Sodium Chloride (Zosyn/Iv Sodium Chloride 0.9 % 50ml) 50 ml @ 100 mls/hr Q6HRS IV ; Start 05/14/16 at 00:00; Stop 05/14/16 at 00:00; Status DC Paroxetine HCl (Paxil) 40 mg DAILY PO Last administered on 05/15/16 09:17; Start 05/14/16 at 09:00 Trazodone HCl (Desyrel) 100 mg QHS PO Last administered on 05/13/16 22:50; Start 05/13/16 at 23:00 Alprazolam (Xanax) 1 mg TID PO Last administered on 05/15/16 09:17; Start at 23:00 Paroxetine HCl (Paxil) 20 mg QHS PO Last administered on 05/13/16 22:51; Start 05/13/16 at 23:00 Aspirin (Children'S Aspirin) 81 mg DAILY PO Last administered on 05/15/16 09:16 ; Start 05/14/16 at 09:00 Celecoxib (Celebrex) 200 mg BID PO Last administered on 05/15/16 09:17; Start 05/14/16 at 09:00 Metoclopramide HCl (Reglan) 5 mg PRN TID PRN PO HEARTBURN / GAS; Start 05/14/16 at 05:00 Pantoprazole Sodium (Protonix) 40 mg DAILYAC PO Last administered on 05/15/16 09:17; Start 05/14/16 at 07:30 Acyclovir (Zovirax) 400 mg DAILY08 PO Last administered on 05/15/16 09:17; Start 05/14/16 at 08:00 Meclizine HCl (Antivert) 25 mg PRN TID PRN PO DIZZINESS; Start 05/14/16 at 05:00 Non-Formulary Medication 1 tab 1 tab DAILY08 PO ; Start 05/14/16 at 08:00; Status UNV Lactated Ringer's (Iv Lactated Ringers) 1,000 ml @ 100 mls/hr Q10H IV Last administered on 05/14/16 22:19; Start 05/14/16 at 10:00 Midazolam HCl 2 mg 2 mg STK-MED ONCE .ROUTE ; Start 05/14/16 at 09:37; Stop at 09:38; Status DC Propofol (Diprivan) 20 ml @ As Directed STK-MED ONCE IV ; Start 05/14/16 at 09:38 ; Stop 05/14/16 at 09:39; Status DC Epinephrine HCl 1 mg STK-MED ONCE .ROUTE ; Start 05/14/16 at 10:10; Stop 05/14/16 at 10:11; Status DC Fentanyl Citrate 50 mcg 50 mcg PRN Q2HRS PRN IV PAIN; Start 05/14/16 at 12:00 Vancomycin HCl/ Sodium Chloride (Iv Sodium Chloride 0.9% 250ml) 250 ml @ 167 mls/hr Q24H IV Last administered on 05/15/16 08:00; Start 05/15/16 at 08:00 Barium Sulfate 148 gm 148 gm 1X ONCE PO ; Start 05/15/16 at 10:15; Stop 05/15/16 at 10:16; Status DC Levofloxacin/ Dextrose (LEVAQUIN 750mg PREMIX) 150 ml @ 100 mls/hr Q24H IV ; Start 05/15/16 at 12:00 Active Scripts Active Reported Metoclopramide Hcl 5 Mg Tablet 5 Mg PO TID PRN Meclizine Hcl 25 Mg Tablet 1 Tab PO PRN TID Pantoprazole Sodium 40 Mg Tablet.dr 1 Tab PO DAILY Acyclovir 400 Mg Tablet 1 Tab PO DAILY08 Aspirin 81 Mg Tab.chew 1 Tab PO DAILY Celebrex (Celecoxib) 200 Mg Capsule 200 Mg PO BID 30 Days Hydrocodone-Apap 7.5-325 (Hydrocodone Bit/Acetaminophen) 1 Each Tablet 1 Tab PO Q8HRS Xanax (Alprazolam) 1 Mg Tablet 1 Tab PO TID Trazodone Hcl 50 Mg Tablet 2 Tab PO QHS Paxil (Paroxetine Hcl) 20 Mg Tablet 1 Tab PO DAILY Paxil (Paroxetine Hcl) 40 Mg Tablet 1 Tab PO DAILY08 Vitals/I & O Vital Sign - Last 24 Hours 05/14/16 05/14/16 05/14/16 05/14/16 11:33 11:47 12:01 12:31 Pulse 89 96 88 86 Resp 15 15 15 15 B/P 129/64 90/69 100/61 105/63 Pulse Ox 95 90 92 95 O2 Delivery Nasal Cannula Nasal Cannula Nasal Cannula Nasal Cannula 05/14/16 05/14/16 05/14/16 05/14/16 13:01 13:30 14:30 19:15 Temp 96.3 96.3 Pulse 79 80 84 76 Resp 15 15 16 16 B/P 98/63 105/53 105/59 98/64 Pulse Ox 93 93 92 90 O2 Delivery Nasal Cannula Nasal Cannula Nasal Cannula Room Air 05/14/16 05/14/16 05/15/16 05/15/16 20:00 23:30 03:10 04:21 Temp 97.9 96.9 96.9 97.9 96.9 96.9 Pulse 68 72 72 Resp 16 16 16 B/P 113/58 90/47 90/47 Pulse Ox 98 98 98 O2 Delivery Nasal Cannula Room Air Room Air Room Air O2 Flow Rate 3.0 05/15/16 05/15/16 07:00 08:00 Temp 97.9 97.9 Pulse 72 Resp 18 B/P 107/52 Pulse Ox 98 O2 Delivery Room Air Nasal Cannula O2 Flow Rate 3.0 Intake and Output 05/14/16 05/14/16 05/15/16 15:00 23:00 07:00 Intake Total 200 ml 0 ml 250 ml Balance 200 ml 0 ml 250 ml KARMA ALVARADO III DO May 15, 2016 11:40
[2016-05-15] MEDS: VANCOMYCIN PER PHARMACY MC PRN ×2 (11:48→11:50)
--- NOTE | 2016-05-15 15:39 | RAD ---
Video fluoroscopic swallowing study Indications: Dysphagia, oral pharyngeal phase. Chronic aspiration. Total fluoroscopic time: 1.4 minutes. Total fluoroscopic spot views: 11. Findings: A video fluoroscopic swallowing study was performed with the speech pathologist present. The study was difficult due to the patient's dwarfism and high riding shoulders. Therefore, the hypopharynx and larynx are not well visualized. However, no obvious laryngeal aspiration was seen. IMPRESSION: Difficult study to poor visualization but no obvious laryngeal aspiration was evident.
--- NOTE | 2016-05-15 16:10 | PATHOLOGY ---
PATHOLOGY REPORT * * * * * * * * FINAL DIAGNOSIS: Bronchial biopsy, right upper lobe: - Mild acute and chronic inflammation. COMMENT: Sections of the right upper lobe bronchial biopsy reveal segments of bronchial mucosa showing congestion and mild acute and chronic inflammation. There is no evidence of malignancy. (JPM:all; d/t: 05/15/2016) REPORT ELECTRONICALLY SIGNED BY: William Wolf M.D. DATE/TIME: 05/15/2016 16:09 * * * * * * * * GROSS PATHOLOGY: Received in formalin labeled "Carmel Bustamante and BBX," are 2 segments of farrar soft tissue measuring 0.4 x 0.2 x 0.2 cm in aggregate dimensions and each measuring 0.2 cm in maximum dimension. The specimen is submitted entirely in cassette A1. (TTL; 05/14/2016) INITIAL CPT CODE(S): A; 36271 Professional services performed [place] [facility] [place] [address] Technical services performed by [facility] at [address] [place] [address] [address] [address]. SPECIMEN(S) RECEIVED: A.Bronchial biopsy RUL CLINICAL HISTORY: Community acquired pneumonia, possible lung neoplasm PATIENT: CARMEL BUSTAMANTE /AGE: 10 1950 (Age: 66) PATIENT #: [id number] ALT CASE #: [id number] SPECIMEN COLLECTION DATE: 05/14/2016 SPECIMEN RECEIVED DATE: 05/14/2016 [facility] - [address] [place] [address] - PHONE: [phone] * * * END OF REPORT * * *
[2016-05-15] MEDS: traZODone 100 MG TABLET. PO SCH (20:43)
[2016-05-15] MEDS: NYSTATIN TOPICAL POWDER 15GM BOTTLE. TP SCH (20:49)
[2016-05-16] MEDS: PIPERACILLIN/TAZOBACTAM 4.5 GM in IV NORMAL SALINE 100ML 100 ML IV SCH ×4 (01:00→18:17)
[2016-05-16] MEDS: IV RINGERS,LACTATED 1000ML 1,000 ML IV SCH ×3 (02:00→20:48)
[2016-05-16 03:00] VITALS: BP 130/64
[2016-05-16 06:30] LABS: CALCIUM 7.8 mg/dL (8.5-10.1); CREATININE 0.9 mg/dL (0.6-1.0); POTASSIUM 3.1 mmol/L (3.5-5.1)
[2016-05-16 06:46] LABS: BASO % 1 % (0-3); EOS % 3 % (0-3); HEMATOCRIT 28.3 % (36.0-47.0); HEMOGLOBIN 9.5 g/dL (12.0-15.5); LYMPH # 1.8 x10^3/uL (1.0-4.8); LYMPH % 28 % (24-48); MEAN CORPUSCULAR HEMOGLOBIN 32 pg (25-35); MEAN CORPUSCULAR HGB CONC 34 g/dL (31-37); MEAN CORPUSCULAR VOLUME 96 fL (79-100); MONO % 10 % (0-9); NEUT % 58 % (31-73); PLATELET COUNT 360 x10^3/uL (140-400); RED BLOOD COUNT 2.95 x10^6/uL (3.50-5.40); RED CELL DISTRIBUTION WIDTH 14.6 % (11.5-14.5); WHITE BLOOD COUNT 6.3 x10^3/uL (4.0-11.0)
[2016-05-16 07:00] VITALS: BP 102/52
[2016-05-16] MEDS: VANCOMYCIN PER PHARMACY MC PRN (07:38)
[2016-05-16] MEDS: ACYCLOVIR 200 MG CAPSULE PO SCH (08:54)
[2016-05-16] MEDS: CELECOXIB 200 MG CAPSULE PO SCH ×2 (08:54→20:49)
[2016-05-16] MEDS: PAROXETINE 20 MG TABLET. PO SCH ×2 (08:55→20:48)
[2016-05-16] MEDS: ALPRAZOLAM 1 MG TABLET PO SCH ×3 (08:55→20:49)
[2016-05-16] MEDS: ASPIRIN 81 MG TAB.CHEW PO SCH (08:55)
[2016-05-16] MEDS: VANCOMYCIN 1.25 GM in IV NORMAL SALINE 250ML 250 ML IV SCH (08:55)
[2016-05-16] MEDS: PANTOPRAZOLE 40 MG TABLET. PO SCH (08:55)
[2016-05-16] MEDS: NYSTATIN TOPICAL POWDER 15GM BOTTLE. TP SCH ×2 (08:56→20:51)
--- NOTE | 2016-05-16 09:45 | RAD ---
Indication pneumonia. Follow-up. A single view of the chest was obtained and is compared to a study 2 days previously. Consolidation in the right upper lobe, compatible with pneumonia is again seen. Heart and pulmonary vessels are similar. A significant change in the appearance of the chest is not seen. Right PICC line is again noted. IMPRESSION: No significant change. Persistent infiltrate in the right upper lobe compatible with pneumonia
[2016-05-16 11:00] VITALS: BP 150/73
--- NOTE | 2016-05-16 11:15 | PDOC ---
PROGRESS NOTES Chief Complaint Chief Complaint 1. Right upper lobe infiltrate 2. Hypoxic respiratory failure. 3. Chronic back pain. 4. Mild hyperkalemia. 5. Thrombocytosis. 6. Hypertension. 7. Dwarfism History of Present Illness History of Present Illness Pt is doing well this AM. The pt is still having to use regular O2 and has some episodes of coughing and SOA at times but is feeling improved since admission. [facility] Healthcare Team/Family- VSS; Bx showed no malignancy; Discussed results of Swallow study and informed pt it was ok for regular diet with thin liquids as long as sitting up during PO intake Vitals Vitals Vital Signs Date Time Temp Pulse Resp B/P Pulse Ox O2 Delivery O2 Flow Rate FiO2 05/16/16 08:00 Nasal Cannula 3.0 05/16/16 07:00 97.7 80 18 102/52 95 97.7 Physical Exam General: Alert, Oriented X3, Cooperative, No acute distress Heart: Regular rate, No murmurs Lungs: Other (Decreased breath sounds on R, improved since yesterday) Abdomen: Soft, No tenderness Extremities: No cyanosis, No edema Skin: No rashes, No breakdown Labs LABS Laboratory Tests Test 05/16/16 06:00 White Blood Count 6.3x10^3/uL (4.0-11.0) Red Blood Count 2.95x10^6/uL (3.50-5.40) Hemoglobin 9.5g/dL (12.0-15.5) Hematocrit 28.3% (36.0-47.0) Mean Corpuscular Volume 96fL (79-100) Mean Corpuscular Hemoglobin 32pg (25-35) Mean Corpuscular Hemoglobin Concent 34g/dL (31-37) Red Cell Distribution Width 14.6% (11.5-14.5) Platelet Count 360x10^3/uL (140-400) Neutrophils (%) (Auto) 58% (31-73) Lymphocytes (%) (Auto) 28% (24-48) Monocytes (%) (Auto) 10% (0-9) Eosinophils (%) (Auto) 3% (0-3) Basophils (%) (Auto) 1% (0-3) Neutrophils # (Auto) 3.6x10^3uL (1.8-7.7) Lymphocytes # (Auto) 1.8x10^3/uL (1.0-4.8) Monocytes # (Auto) 0.7x10^3/uL (0.0-1.1) Eosinophils # (Auto) 0.2x10^3/uL (0.0-0.7) Basophils # (Auto) 0.0x10^3/uL (0.0-0.2) Sodium Level 146mmol/L (136-145) Potassium Level 3.1mmol/L (3.5-5.1) Chloride Level 107mmol/L (98-107) Carbon Dioxide Level 32mmol/L (21-32) Anion Gap 7 (6-14) Blood Urea Nitrogen 8mg/dL (7-20) Creatinine 0.9mg/dL (0.6-1.0) Estimated GFR (Cockcroft-Gault) 63.0 Glucose Level 124mg/dL (70-99) Calcium Level 7.8mg/dL (8.5-10.1) Vancomycin Level Trough 12.0mcg/mL (10.0-20.0) Vancomycin Last Dose Date 05/15/16 Vancomycin Last Dose Time 0800 Review of Systems Review of Systems Complaining of Cough Complaining of SOA Complaining of Weakness All of ROS Negative Assessment and Plan Assessmemt and Plan Problems Medical Problems: (1) Community acquired pneumonia Status: Acute (2) Hypoxia Status: Acute (3) Lung neoplasm Status: Acute 1. Right upper lobe infiltrate 2. Hypoxic respiratory failure. 3. Chronic back pain. 4. Mild hyperkalemia. 5. Thrombocytosis. 6. Hypertension. 7. Dwarfism Plan - Will continue Vancomycin and Zosyn Treatment as recommended - Pulmonary Consulted and on Case- appreciate recommendations - Bx: showed no malignancy - Continue Abx - Continue Supplemental 02 with Nasal Cannula as needed - Speech/Swallow Evaluation: Completed- pt may have regular diet with thin liquids as long as sitting up during PO intake - PT/OT on case to eval and treat as needed - Continue Home Medications - Regular Labs in the AM - Fentanyl PRN Order in place still for pain Disposition: Probable Discharge tomorrow if ok with pulmonary Problems: Comment Review of Relevant I have reviewed the following items ginger (where applicable) has been applied. Labs Laboratory Tests Test 05/14/16 19:15 05/15/16 07:45 05/16/16 06:00 Vancomycin Level Trough 23.9mcg/mL (10.0-20.0) 12.0mcg/mL (10.0-20.0) Vancomycin Last Dose Date 05/14/2016 05/15/16 Vancomycin Last Dose Time 0800 0800 White Blood Count 7.1x10^3/uL (4.0-11.0) 6.3x10^3/uL (4.0-11.0) Red Blood Count 3.20x10^6/uL (3.50-5.40) 2.95x10^6/uL (3.50-5.40) Hemoglobin 10.4g/dL (12.0-15.5) 9.5g/dL (12.0-15.5) Hematocrit 31.0% (36.0-47.0) 28.3% (36.0-47.0) Mean Corpuscular Volume 97fL (79-100) 96fL (79-100) Mean Corpuscular Hemoglobin 32pg (25-35) 32pg (25-35) Mean Corpuscular Hemoglobin Concent 33g/dL (31-37) 34g/dL (31-37) Red Cell Distribution Width 14.2% (11.5-14.5) 14.6% (11.5-14.5) Platelet Count 419x10^3/uL (140-400) 360x10^3/uL (140-400) Neutrophils (%) (Auto) 65% (31-73) 58% (31-73) Lymphocytes (%) (Auto) 24% (24-48) 28% (24-48) Monocytes (%) (Auto) 8% (0-9) 10% (0-9) Eosinophils (%) (Auto) 2% (0-3) 3% (0-3) Basophils (%) (Auto) 1% (0-3) 1% (0-3) Neutrophils # (Auto) 4.6x10^3uL (1.8-7.7) 3.6x10^3uL (1.8-7.7) Lymphocytes # (Auto) 1.7x10^3/uL (1.0-4.8) 1.8x10^3/uL (1.0-4.8) Monocytes # (Auto) 0.6x10^3/uL (0.0-1.1) 0.7x10^3/uL (0.0-1.1) Eosinophils # (Auto) 0.2x10^3/uL (0.0-0.7) 0.2x10^3/uL (0.0-0.7) Basophils # (Auto) 0.1x10^3/uL (0.0-0.2) 0.0x10^3/uL (0.0-0.2) Sodium Level 143mmol/L (136-145) 146mmol/L (136-145) Potassium Level 3.6mmol/L (3.5-5.1) 3.1mmol/L (3.5-5.1) Chloride Level 105mmol/L (98-107) 107mmol/L (98-107) Carbon Dioxide Level 31mmol/L (21-32) 32mmol/L (21-32) Anion Gap 7 (6-14) 7 (6-14) Blood Urea Nitrogen 9mg/dL (7-20) 8mg/dL (7-20) Creatinine 0.7mg/dL (0.6-1.0) 0.9mg/dL (0.6-1.0) Estimated GFR (Cockcroft-Gault) 84.2 63.0 Glucose Level 116mg/dL (70-99) 124mg/dL (70-99) Calcium Level 8.0mg/dL (8.5-10.1) 7.8mg/dL (8.5-10.1) Laboratory Tests Test 05/16/16 06:00 White Blood Count 6.3x10^3/uL (4.0-11.0) Red Blood Count 2.95x10^6/uL (3.50-5.40) Hemoglobin 9.5g/dL (12.0-15.5) Hematocrit 28.3% (36.0-47.0) Mean Corpuscular Volume 96fL (79-100) Mean Corpuscular Hemoglobin 32pg (25-35) Mean Corpuscular Hemoglobin Concent 34g/dL (31-37) Red Cell Distribution Width 14.6% (11.5-14.5) Platelet Count 360x10^3/uL (140-400) Neutrophils (%) (Auto) 58% (31-73) Lymphocytes (%) (Auto) 28% (24-48) Monocytes (%) (Auto) 10% (0-9) Eosinophils (%) (Auto) 3% (0-3) Basophils (%) (Auto) 1% (0-3) Neutrophils # (Auto) 3.6x10^3uL (1.8-7.7) Lymphocytes # (Auto) 1.8x10^3/uL (1.0-4.8) Monocytes # (Auto) 0.7x10^3/uL (0.0-1.1) Eosinophils # (Auto) 0.2x10^3/uL (0.0-0.7) Basophils # (Auto) 0.0x10^3/uL (0.0-0.2) Sodium Level 146mmol/L (136-145) Potassium Level 3.1mmol/L (3.5-5.1) Chloride Level 107mmol/L (98-107) Carbon Dioxide Level 32mmol/L (21-32) Anion Gap 7 (6-14) Blood Urea Nitrogen 8mg/dL (7-20) Creatinine 0.9mg/dL (0.6-1.0) Estimated GFR (Cockcroft-Gault) 63.0 Glucose Level 124mg/dL (70-99) Calcium Level 7.8mg/dL (8.5-10.1) Vancomycin Level Trough 12.0mcg/mL (10.0-20.0) Vancomycin Last Dose Date 05/15/16 Vancomycin Last Dose Time 0800 Microbiology 05/13/16 Blood Culture - Preliminary, Resulted NO GROWTH AFTER 2 DAYS Medications Current Medications Iohexol (Omnipaque 300 Mg/ml) 75 ml 1X ONCE IV Last administered on 05/13/16t 15:11; Start 05/13/16 at 15:15; Stop 05/13/16 at 15:16; Status DC Info (Do NOT chart on this entry -- for MONITORING) 1 each PRN DAILY PRN MC SEE COMMENTS; Start 05/13/16 at 15:15; Stop 05/15/16 at 15:14; Status DC Levofloxacin/ Dextrose 1 each 1 each PRN DAILY PRN MC SEE COMMENTS; Start at 16:15 Levofloxacin/ Dextrose (LEVAQUIN 750mg PREMIX) 150 ml @ 100 mls/hr 1X ONCE IV Last administered on 05/13/16 17:10; Start 05/13/16 at 16:45; Stop 05/13/16 at 18:14; Status DC Vancomycin HCl (Vanco Per Pharmacy) 1 each PRN DAILY PRN MC SEE COMMENTS Last administered on 05/16/16 07:38; Start 05/13/16 at 16:30 Piperacillin Sod/ Tazobactam Sod 1 each 1 each PRN DAILY PRN MC SEE COMMENTS; Start 05/13/16 at 16:30 Vancomycin HCl 2 gm/Sodium Chloride 500 ml @ 250 mls/hr 1X ONCE IV Last administered on 05/13/16 20:30; Start 05/13/16 at 17:00; Stop 05/13/16 at 18:59; Status DC Piperacillin Sod/ Tazobactam Sod/ Sodium Chloride (Zosyn/Iv Sodium Chloride 0.9 % 100ml) 100 ml @ 200 mls/hr 1X ONCE IV Last administered on 05/13/16 19:53; Start 05/13/16 at 17:00; Stop 05/13/16 at 17:29; Status DC Ondansetron HCl (Zofran) 4 mg PRN Q8HRS PRN IV NAUSEA/VOMITING; Start 05/13/16 at 17:00; Stop 05/14/16 at 16:59; Status DC Fentanyl Citrate 50 mcg 50 mcg PRN Q2HR PRN IV PAIN Last administered on 12:04; Start 05/13/16 at 17:00; Stop 05/14/16 at 16:59; Status DC Levofloxacin/ Dextrose 150 ml @ 100 mls/hr Q24H IV ; Start 05/14/16 at 17:00; Stop 05/15/16 at 11:13; Status DC Piperacillin Sod/ Tazobactam Sod/ Sodium Chloride (Zosyn/Iv Sodium Chloride 0.9 % 100ml) 100 ml @ 200 mls/hr Q6HRS IV Last administered on 05/16/16 05:46; Start 05/14/16 at 00:00 Acetaminophen (Tylenol) 325 mg PRN Q6HRS PRN PO MILD PAIN / TEMP; Start at 18:45 Acetaminophen/ Hydrocodone Bitart (Lortab 5/325) 1 tab PRN Q6HRS PRN PO MODERATE TO SEVERE PAIN Last administered on 05/13/16 22:49; Start 05/13/16 at 18 :45 Hydralazine HCl (Apresoline) 10 mg PRN Q4HRS PRN IVP ELEVATED BP, SEE COMMENTS ; Start 05/13/16 at 18:45 Ondansetron HCl (Zofran) 4 mg PRN Q8HRS PRN IV NAUSEA/VOMITING; Start 05/13/16 at 18:45 Albuterol Sulfate 2.5 mg 2.5 mg PRN Q4HRS PRN NEB SHORTNESS OF BREATH Last administered on 05/14/16 09:42; Start 05/13/16 at 18:45 Vancomycin HCl/ Sodium Chloride (Iv Sodium Chloride 0.9% 250ml) 250 ml @ 167 mls/hr Q12H IV Last administered on 05/14/16 08:28; Start 05/14/16 at 08:00; Stop 05/14/16 at 19:51; Status DC Vancomycin HCl 1 each 1 each 1X ONCE MC Last administered on 05/14/16 19:30; Start 05/14/16 at 19:30; Stop 05/14/16 at 19:31; Status DC Piperacillin Sod/ Tazobactam Sod/ Sodium Chloride (Zosyn/Iv Sodium Chloride 0.9 % 50ml) 50 ml @ 100 mls/hr Q6HRS IV ; Start 05/14/16 at 00:00; Stop 05/14/16 at 00:00; Status DC Paroxetine HCl (Paxil) 40 mg DAILY PO Last administered on 05/16/16 08:55; Start 05/14/16 at 09:00 Trazodone HCl (Desyrel) 100 mg QHS PO Last administered on 05/15/16 20:43; Start 05/13/16 at 23:00 Alprazolam (Xanax) 1 mg TID PO Last administered on 05/16/16 08:55; Start 05/13 at 23:00 Paroxetine HCl (Paxil) 20 mg QHS PO Last administered on 05/15/16 20:43; Start 05/13/16 at 23:00 Aspirin (Children'S Aspirin) 81 mg DAILY PO Last administered on 05/16/16 08: 55; Start 05/14/16 at 09:00 Celecoxib (Celebrex) 200 mg BID PO Last administered on 05/16/16 08:54; Start 05/14/16 at 09:00 Metoclopramide HCl (Reglan) 5 mg PRN TID PRN PO HEARTBURN / GAS; Start 05/14/16 at 05:00 Pantoprazole Sodium (Protonix) 40 mg DAILYAC PO Last administered on 05/16/16 08:55; Start 05/14/16 at 07:30 Acyclovir (Zovirax) 400 mg DAILY08 PO Last administered on 05/16/16 08:54; Start 05/14/16 at 08:00 Meclizine HCl (Antivert) 25 mg PRN TID PRN PO DIZZINESS; Start 05/14/16 at 05:00 Non-Formulary Medication 1 tab 1 tab DAILY08 PO ; Start 05/14/16 at 08:00; Status UNV Lactated Ringer's (Iv Lactated Ringers) 1,000 ml @ 100 mls/hr Q10H IV Last administered on 05/15/16 20:48; Start 05/14/16 at 10:00 Midazolam HCl 2 mg 2 mg STK-MED ONCE .ROUTE ; Start 05/14/16 at 09:37; Stop at 09:38; Status DC Propofol (Diprivan) 20 ml @ As Directed STK-MED ONCE IV ; Start 05/14/16 at 09:38 ; Stop 05/14/16 at 09:39; Status DC Epinephrine HCl 1 mg STK-MED ONCE .ROUTE ; Start 05/14/16 at 10:10; Stop 05/14/16 at 10:11; Status DC Fentanyl Citrate 50 mcg 50 mcg PRN Q2HRS PRN IV PAIN; Start 05/14/16 at 12:00 Vancomycin HCl/ Sodium Chloride (Iv Sodium Chloride 0.9% 250ml) 250 ml @ 167 mls/hr Q24H IV Last administered on 05/15/16 08:00; Start 05/15/16 at 08:00; Stop 05/16/16 at 07:34; Status DC Barium Sulfate 148 gm 148 gm 1X ONCE PO Last administered on 05/15/16 15:22; Start 05/15/16 at 10:15; Stop 05/15/16 at 10:16; Status DC Levofloxacin/ Dextrose (LEVAQUIN 750mg PREMIX) 150 ml @ 100 mls/hr Q24H IV Last administered on 05/15/16 12:54; Start 05/15/16 at 12:00 Vancomycin HCl 1 each 1X ONCE MC Last administered on 05/16/16 07:35; Start 05/16/16 at 07:30; Stop 05/16/16 at 07:31; Status DC Nystatin 1 augustina 1 augustina BID TP Last administered on 05/16/16 08:56; Start at 21:00 Vancomycin HCl/ Sodium Chloride (Iv Sodium Chloride 0.9% 250ml) 250 ml @ 167 mls/hr Q18H IV Last administered on 05/16/16 08:55; Start 05/16/16 at 08:00 Active Scripts Active Reported Metoclopramide Hcl 5 Mg Tablet 5 Mg PO TID PRN Meclizine Hcl 25 Mg Tablet 1 Tab PO PRN TID Pantoprazole Sodium 40 Mg Tablet.dr 1 Tab PO DAILY Acyclovir 400 Mg Tablet 1 Tab PO DAILY08 Aspirin 81 Mg Tab.chew 1 Tab PO DAILY Celebrex (Celecoxib) 200 Mg Capsule 200 Mg PO BID 30 Days Hydrocodone-Apap 7.5-325 (Hydrocodone Bit/Acetaminophen) 1 Each Tablet 1 Tab PO Q8HRS Xanax (Alprazolam) 1 Mg Tablet 1 Tab PO TID Trazodone Hcl 50 Mg Tablet 2 Tab PO QHS Paxil (Paroxetine Hcl) 20 Mg Tablet 1 Tab PO DAILY Paxil (Paroxetine Hcl) 40 Mg Tablet 1 Tab PO DAILY08 Vitals/I & O Vital Sign - Last 24 Hours 05/15/16 05/15/16 05/15/16 05/15/16 15:00 19:38 20:00 23:25 Temp 97.7 97.9 97.9 97.7 97.9 97.9 Pulse 75 73 75 Resp 16 18 20 B/P 111/67 109/75 141/65 Pulse Ox 98 96 95 O2 Delivery Room Air Nasal Cannula Nasal Cannula O2 Flow Rate 3.0 2.0 05/16/16 05/16/16 05/16/16 03:00 07:00 08:00 Temp 97.8 97.7 97.8 97.7 Pulse 74 80 Resp 20 18 B/P 130/64 102/52 Pulse Ox 95 95 O2 Delivery Nasal Cannula Nasal Cannula Nasal Cannula O2 Flow Rate 2.0 2.0 3.0 Intake and Output 05/15/16 05/15/16 05/16/16 15:00 23:00 07:00 Intake Total 520 ml 220 ml 580 ml Balance 520 ml 220 ml 580 ml KARMA ALVARADO III DO May 16, 2016 11:15
--- NOTE | 2016-05-16 11:23 | PDOC ---
PULMONARY PROGRESS NOTES Subjective no soa Vitals Vital Signs Date Time Temp Pulse Resp B/P Pulse Ox O2 Delivery O2 Flow Rate FiO2 05/16/16 08:00 Nasal Cannula 3.0 05/16/16 07:00 97.7 80 18 102/52 95 97.7 General: Alert Lungs: Other (Decreased breath sounds on R, improved since yesterday) Cardiovascular: S1 Abdomen: Soft Extremities: No Edema Skin: Warm Labs Laboratory Tests Test 05/14/16 19:15 05/15/16 07:45 05/16/16 06:00 Vancomycin Level Trough 23.9mcg/mL (10.0-20.0) 12.0mcg/mL (10.0-20.0) Vancomycin Last Dose Date 05/14/2016 05/15/16 Vancomycin Last Dose Time 0800 0800 White Blood Count 7.1x10^3/uL (4.0-11.0) 6.3x10^3/uL (4.0-11.0) Red Blood Count 3.20x10^6/uL (3.50-5.40) 2.95x10^6/uL (3.50-5.40) Hemoglobin 10.4g/dL (12.0-15.5) 9.5g/dL (12.0-15.5) Hematocrit 31.0% (36.0-47.0) 28.3% (36.0-47.0) Mean Corpuscular Volume 97fL (79-100) 96fL (79-100) Mean Corpuscular Hemoglobin 32pg (25-35) 32pg (25-35) Mean Corpuscular Hemoglobin Concent 33g/dL (31-37) 34g/dL (31-37) Red Cell Distribution Width 14.2% (11.5-14.5) 14.6% (11.5-14.5) Platelet Count 419x10^3/uL (140-400) 360x10^3/uL (140-400) Neutrophils (%) (Auto) 65% (31-73) 58% (31-73) Lymphocytes (%) (Auto) 24% (24-48) 28% (24-48) Monocytes (%) (Auto) 8% (0-9) 10% (0-9) Eosinophils (%) (Auto) 2% (0-3) 3% (0-3) Basophils (%) (Auto) 1% (0-3) 1% (0-3) Neutrophils # (Auto) 4.6x10^3uL (1.8-7.7) 3.6x10^3uL (1.8-7.7) Lymphocytes # (Auto) 1.7x10^3/uL (1.0-4.8) 1.8x10^3/uL (1.0-4.8) Monocytes # (Auto) 0.6x10^3/uL (0.0-1.1) 0.7x10^3/uL (0.0-1.1) Eosinophils # (Auto) 0.2x10^3/uL (0.0-0.7) 0.2x10^3/uL (0.0-0.7) Basophils # (Auto) 0.1x10^3/uL (0.0-0.2) 0.0x10^3/uL (0.0-0.2) Sodium Level 143mmol/L (136-145) 146mmol/L (136-145) Potassium Level 3.6mmol/L (3.5-5.1) 3.1mmol/L (3.5-5.1) Chloride Level 105mmol/L (98-107) 107mmol/L (98-107) Carbon Dioxide Level 31mmol/L (21-32) 32mmol/L (21-32) Anion Gap 7 (6-14) 7 (6-14) Blood Urea Nitrogen 9mg/dL (7-20) 8mg/dL (7-20) Creatinine 0.7mg/dL (0.6-1.0) 0.9mg/dL (0.6-1.0) Estimated GFR (Cockcroft-Gault) 84.2 63.0 Glucose Level 116mg/dL (70-99) 124mg/dL (70-99) Calcium Level 8.0mg/dL (8.5-10.1) 7.8mg/dL (8.5-10.1) Laboratory Tests Test 05/16/16 06:00 White Blood Count 6.3x10^3/uL (4.0-11.0) Red Blood Count 2.95x10^6/uL (3.50-5.40) Hemoglobin 9.5g/dL (12.0-15.5) Hematocrit 28.3% (36.0-47.0) Mean Corpuscular Volume 96fL (79-100) Mean Corpuscular Hemoglobin 32pg (25-35) Mean Corpuscular Hemoglobin Concent 34g/dL (31-37) Red Cell Distribution Width 14.6% (11.5-14.5) Platelet Count 360x10^3/uL (140-400) Neutrophils (%) (Auto) 58% (31-73) Lymphocytes (%) (Auto) 28% (24-48) Monocytes (%) (Auto) 10% (0-9) Eosinophils (%) (Auto) 3% (0-3) Basophils (%) (Auto) 1% (0-3) Neutrophils # (Auto) 3.6x10^3uL (1.8-7.7) Lymphocytes # (Auto) 1.8x10^3/uL (1.0-4.8) Monocytes # (Auto) 0.7x10^3/uL (0.0-1.1) Eosinophils # (Auto) 0.2x10^3/uL (0.0-0.7) Basophils # (Auto) 0.0x10^3/uL (0.0-0.2) Sodium Level 146mmol/L (136-145) Potassium Level 3.1mmol/L (3.5-5.1) Chloride Level 107mmol/L (98-107) Carbon Dioxide Level 32mmol/L (21-32) Anion Gap 7 (6-14) Blood Urea Nitrogen 8mg/dL (7-20) Creatinine 0.9mg/dL (0.6-1.0) Estimated GFR (Cockcroft-Gault) 63.0 Glucose Level 124mg/dL (70-99) Calcium Level 7.8mg/dL (8.5-10.1) Vancomycin Level Trough 12.0mcg/mL (10.0-20.0) Vancomycin Last Dose Date 05/15/16 Vancomycin Last Dose Time 0800 Medications Active Scripts Medications Dose Route/Sig Days Date Category Metoclopramide Hcl 5 Mg Tablet 5 Mg PO TID PRN 05/14/16 Reported Meclizine Hcl 25 Mg Tablet 1 Tab PO PRN TID 05/14/16 Reported Pantoprazole Sodium 40 Mg Tablet.dr 1 Tab PO DAILY 05/14/16 Reported Acyclovir 400 Mg Tablet 1 Tab PO DAILY08 05/14/16 Reported Aspirin 81 Mg Tab.chew 1 Tab PO DAILY 05/14/16 Reported Celebrex (Celecoxib) 200 Mg Capsule 200 Mg PO BID 30 05/14/16 Reported Hydrocodone-Apap 7.5-325 (Hydrocodone Bit/Acetaminophen) 1 Each Tablet 1 Tab PO Q8HRS 05/13/16 Reported Xanax (Alprazolam) 1 Mg Tablet 1 Tab PO TID 05/13/16 Reported Trazodone Hcl 50 Mg Tablet 2 Tab PO QHS 05/13/16 Reported Paxil (Paroxetine Hcl) 20 Mg Tablet 1 Tab PO DAILY 05/13/16 Reported Paxil (Paroxetine Hcl) 40 Mg Tablet 1 Tab PO DAILY08 05/13/16 Reported Impression . 1. Right upper lobe consolidation with postobstructive process. This patient has been coughing for 6 months. The cough is also usually associated with food. s/p Bronch/ endobronchial lesion completely occluding RUL/ biopsy with bronchial inflammation, no malignancy 2. No significant history of tobacco use. 3. Acute hypoxic respiratory failure secondary to above. 4. Moderate protein-calorie malnutrition. 5. Dwarfism. Plan . 1. d/w pt and bronchoscopy . No malignancy. She always eat in supine position and I suspect she has chronic aspiration resulting in foreign body aspiration /endobronchial granulation tissue formation. She is at risk for lung abscess. ? candidate for laser. will ask [facility] input/? candidate for lobectomy? 2. antibiotic coverage with vancomycin and Zosyn. cxr with no change 3. Speech consult with video swallow done . No aspiration IN UPRIGHT POSITION 4. Bronchodilators. 5. Get [facility] opinion 6. Further recommendations to follow. HEIDI LONGORIA MD May 16, 2016 11:23
[2016-05-16 15:00] VITALS: BP 137/73
--- NOTE | 2016-05-16 16:17 | PDOC2 ---
CONSULT Date of Consult Date of Consult DATE: 05/16/16 TIME: 16:14 Reason for Consult Reason for Consult: Right upper lobe endobronchial mass Referring Physician Referring Physician: Shaq Phelps MD Identification/Chief Complaint Chief Complaint Chronic cough Source Source: Caregiver, Chart review, Patient History of Present Illness Reason for Visit: The patient is a 66-year-old female with dwarfism, who has been complaining of a chronic cough for approximately 6 months. She also reports episodes of gagging and possible aspiration while eating. She went on to have a chest x-ray for her chronic cough and this demonstrated a right upper lobe consolidation. There is associated significant shortness of breath and she requires oxygen to keep her saturations above 90%. There is also thin yellow-colored sputum production. She denies fevers. Dr. Phelps recently performed a bronchoscopy which demonstrated a completely occluding mass at the takeoff of the right upper lobe bronchus. He describes this mass as very vascular. He took several biopsies with cold forceps which caused significant bleeding. The pathology of the biopsies demonstrated chronic inflammation. I was consulted to consider the patient for possible right upper lobectomy. Her resting PO2 on a recent ABG was only 52. Past Medical History Cardiovascular: No pertinent hx Pulmonary: Pneumonia GI: No pertinent hx Heme/Onc: No pertinent hx Hepatobiliary: No pertinent hx Psych: No pertinent hx Rheumatologic: No pertinent hx Infectious disease: Other (PNA RUL) ENT: No pertinent hx Renal/: No pertinent hx Endocrine: Other (Dwarfism) Dermatology: No pertinent hx Past Surgical History Past Surgical History: Total knee replacement, Hysterectomy Family History Family History: No Significant Social History No ALCOHOL: none Lives: with Family Domestic Violence: Neg Current Problem List Problem List Problems Medical Problems: (1) Community acquired pneumonia Status: Acute (2) Hypoxia Status: Acute (3) Lung neoplasm Status: Acute Current Medications Current Medications Current Medications Iohexol (Omnipaque 300 Mg/ml) 75 ml 1X ONCE IV Last administered on 05/13/16t 15:11; Start 05/13/16 at 15:15; Stop 05/13/16 at 15:16; Status DC Info (Do NOT chart on this entry -- for MONITORING) 1 each PRN DAILY PRN MC SEE COMMENTS; Start 05/13/16 at 15:15; Stop 05/15/16 at 15:14; Status DC Levofloxacin/ Dextrose 1 each 1 each PRN DAILY PRN MC SEE COMMENTS; Start at 16:15 Levofloxacin/ Dextrose (LEVAQUIN 750mg PREMIX) 150 ml @ 100 mls/hr 1X ONCE IV Last administered on 05/13/16 17:10; Start 05/13/16 at 16:45; Stop 05/13/16 at 18:14; Status DC Vancomycin HCl (Vanco Per Pharmacy) 1 each PRN DAILY PRN MC SEE COMMENTS Last administered on 05/16/16 07:38; Start 05/13/16 at 16:30 Piperacillin Sod/ Tazobactam Sod 1 each 1 each PRN DAILY PRN MC SEE COMMENTS; Start 05/13/16 at 16:30 Vancomycin HCl 2 gm/Sodium Chloride 500 ml @ 250 mls/hr 1X ONCE IV Last administered on 05/13/16 20:30; Start 05/13/16 at 17:00; Stop 05/13/16 at 18:59; Status DC Piperacillin Sod/ Tazobactam Sod/ Sodium Chloride (Zosyn/Iv Sodium Chloride 0.9 % 100ml) 100 ml @ 200 mls/hr 1X ONCE IV Last administered on 05/13/16 19:53; Start 05/13/16 at 17:00; Stop 05/13/16 at 17:29; Status DC Ondansetron HCl (Zofran) 4 mg PRN Q8HRS PRN IV NAUSEA/VOMITING; Start 05/13/16 at 17:00; Stop 05/14/16 at 16:59; Status DC Fentanyl Citrate 50 mcg 50 mcg PRN Q2HR PRN IV PAIN Last administered on 12:04; Start 05/13/16 at 17:00; Stop 05/14/16 at 16:59; Status DC Levofloxacin/ Dextrose 150 ml @ 100 mls/hr Q24H IV ; Start 05/14/16 at 17:00; Stop 05/15/16 at 11:13; Status DC Piperacillin Sod/ Tazobactam Sod/ Sodium Chloride (Zosyn/Iv Sodium Chloride 0.9 % 100ml) 100 ml @ 200 mls/hr Q6HRS IV Last administered on 05/16/16 11:42; Start 05/14/16 at 00:00 Acetaminophen (Tylenol) 325 mg PRN Q6HRS PRN PO MILD PAIN / TEMP; Start at 18:45 Acetaminophen/ Hydrocodone Bitart (Lortab 5/325) 1 tab PRN Q6HRS PRN PO MODERATE TO SEVERE PAIN Last administered on 05/13/16 22:49; Start 05/13/16 at 18 :45 Hydralazine HCl (Apresoline) 10 mg PRN Q4HRS PRN IVP ELEVATED BP, SEE COMMENTS ; Start 05/13/16 at 18:45 Ondansetron HCl (Zofran) 4 mg PRN Q8HRS PRN IV NAUSEA/VOMITING; Start 05/13/16 at 18:45 Albuterol Sulfate 2.5 mg 2.5 mg PRN Q4HRS PRN NEB SHORTNESS OF BREATH Last administered on 05/14/16 09:42; Start 05/13/16 at 18:45 Vancomycin HCl/ Sodium Chloride (Iv Sodium Chloride 0.9% 250ml) 250 ml @ 167 mls/hr Q12H IV Last administered on 05/14/16 08:28; Start 05/14/16 at 08:00; Stop 05/14/16 at 19:51; Status DC Vancomycin HCl 1 each 1 each 1X ONCE MC Last administered on 05/14/16 19:30; Start 05/14/16 at 19:30; Stop 05/14/16 at 19:31; Status DC Piperacillin Sod/ Tazobactam Sod/ Sodium Chloride (Zosyn/Iv Sodium Chloride 0.9 % 50ml) 50 ml @ 100 mls/hr Q6HRS IV ; Start 05/14/16 at 00:00; Stop 05/14/16 at 00:00; Status DC Paroxetine HCl (Paxil) 40 mg DAILY PO Last administered on 05/16/16 08:55; Start 05/14/16 at 09:00 Trazodone HCl (Desyrel) 100 mg QHS PO Last administered on 05/15/16 20:43; Start 05/13/16 at 23:00 Alprazolam (Xanax) 1 mg TID PO Last administered on 05/16/16 15:51; Start 05/13 at 23:00 Paroxetine HCl (Paxil) 20 mg QHS PO Last administered on 05/15/16 20:43; Start 05/13/16 at 23:00 Aspirin (Children'S Aspirin) 81 mg DAILY PO Last administered on 05/16/16 08: 55; Start 05/14/16 at 09:00 Celecoxib (Celebrex) 200 mg BID PO Last administered on 05/16/16 08:54; Start 05/14/16 at 09:00 Metoclopramide HCl (Reglan) 5 mg PRN TID PRN PO HEARTBURN / GAS; Start 05/14/16 at 05:00 Pantoprazole Sodium (Protonix) 40 mg DAILYAC PO Last administered on 05/16/16 08:55; Start 05/14/16 at 07:30 Acyclovir (Zovirax) 400 mg DAILY08 PO Last administered on 05/16/16 08:54; Start 05/14/16 at 08:00 Meclizine HCl (Antivert) 25 mg PRN TID PRN PO DIZZINESS; Start 05/14/16 at 05:00 Non-Formulary Medication 1 tab 1 tab DAILY08 PO ; Start 05/14/16 at 08:00; Status UNV Lactated Ringer's (Iv Lactated Ringers) 1,000 ml @ 100 mls/hr Q10H IV Last administered on 05/16/16 11:43; Start 05/14/16 at 10:00 Midazolam HCl 2 mg 2 mg STK-MED ONCE .ROUTE ; Start 05/14/16 at 09:37; Stop at 09:38; Status DC Propofol (Diprivan) 20 ml @ As Directed STK-MED ONCE IV ; Start 05/14/16 at 09:38 ; Stop 05/14/16 at 09:39; Status DC Epinephrine HCl 1 mg STK-MED ONCE .ROUTE ; Start 05/14/16 at 10:10; Stop 05/14/16 at 10:11; Status DC Fentanyl Citrate 50 mcg 50 mcg PRN Q2HRS PRN IV PAIN; Start 05/14/16 at 12:00 Vancomycin HCl/ Sodium Chloride (Iv Sodium Chloride 0.9% 250ml) 250 ml @ 167 mls/hr Q24H IV Last administered on 05/15/16 08:00; Start 05/15/16 at 08:00; Stop 05/16/16 at 07:34; Status DC Barium Sulfate 148 gm 148 gm 1X ONCE PO Last administered on 05/15/16 15:22; Start 05/15/16 at 10:15; Stop 05/15/16 at 10:16; Status DC Levofloxacin/ Dextrose (LEVAQUIN 750mg PREMIX) 150 ml @ 100 mls/hr Q24H IV Last administered on 05/16/16 13:04; Start 05/15/16 at 12:00 Vancomycin HCl 1 each 1X ONCE MC Last administered on 05/16/16 07:35; Start 05/16/16 at 07:30; Stop 05/16/16 at 07:31; Status DC Nystatin 1 augustina 1 augustina BID TP Last administered on 05/16/16 08:56; Start at 21:00 Vancomycin HCl/ Sodium Chloride (Iv Sodium Chloride 0.9% 250ml) 250 ml @ 167 mls/hr Q18H IV Last administered on 05/16/16 08:55; Start 05/16/16 at 08:00 Active Scripts Active Reported Metoclopramide Hcl 5 Mg Tablet 5 Mg PO TID PRN Meclizine Hcl 25 Mg Tablet 1 Tab PO PRN TID Pantoprazole Sodium 40 Mg Tablet.dr 1 Tab PO DAILY Acyclovir 400 Mg Tablet 1 Tab PO DAILY08 Aspirin 81 Mg Tab.chew 1 Tab PO DAILY Celebrex (Celecoxib) 200 Mg Capsule 200 Mg PO BID 30 Days Hydrocodone-Apap 7.5-325 (Hydrocodone Bit/Acetaminophen) 1 Each Tablet 1 Tab PO Q8HRS Xanax (Alprazolam) 1 Mg Tablet 1 Tab PO TID Trazodone Hcl 50 Mg Tablet 2 Tab PO QHS Paxil (Paroxetine Hcl) 20 Mg Tablet 1 Tab PO DAILY Paxil (Paroxetine Hcl) 40 Mg Tablet 1 Tab PO DAILY08 Allergies Allergies: Coded Allergies: No Known Drug Allergies (Unverified , 05/14/16) ROS General: YES: Fatigue, No: Appetite, Chills, Malaise, Night Sweats, Other PSYCHOLOGICAL ROS: No: Anxiety, Behavioral Disorder, Concentration difficultie , Decreased libido, Depression, Disorientation, Hallucinations, Hostility, Irritablity, Memory difficulties, Mood Swings, Obsessive thoughts, Physical abuse, Sexual abuse, Sleep disturbances, Suicidal ideation Eyes: No Blurry vision, No Decreased vision, No Double vision, No Dry eyes, No Excessive tearing, No Eye Pain, No Itchy Eyes, No Loss of vision, No Photophobia , No Scotomata, No Uses contacts, No Uses glasses HEENT: YES: Nasal discharge, No: Epistaxis, Heacaches, Hearing change, Nasal congestion, Oral lesions, Sinus pain, Sneezing, Snoring, Sore Throat, Tinnitus, Vertigo, Visual Changes, Vocal changes ALLERGY AND IMMUNOLOGY: No: Hives, Insect Bite Sensitivity, Itchy/Watery Eyes, Nasal Congestion, Post Nasal Drip, Seasonal Allergies Hematological and Lymphatic: No: Bleeding Problems, Blood Clots, Blood Transfusions, Brusing, Night Sweats, Pallor, Swollen Lymph Nodes ENDOCRINE: No: Breast Changes, Galactorrhea, Hair Pattern Changes, Hot Flashes , Malaise/lethargy, Mood Swings, Palpitations, Polydipsia/polyuria, Skin Changes , Temperature Intolerance, Unexpected Weight Changes Breast: No New/Changing Breast Lumps, No Nipple changes, No Nipple discharge Respiratory: YES: Cough, Shortness of breath, Sputum Changes, No: Hemoptysis, Orthopnea, Pleuritic Pain, SOB with excertion, Stridor, Tachypnea, Wheezing Cardiovascular: No Chest Pain, No Edema, No Lt Headedness, No Orthopnea, No Palpitations, No Paroxysmal Noc. Dyspnea Gastrointestinal: No Abdominal Pain, No Constipation, No Diarrhea, No Hematochezia, No Melena, No Nausea, No Vomiting Genitourinary: No Discharge, No Dysuria, No Flank Pain, No Frequency, No Hematuria, No Incontinence, No Pain, No Retention, No Urgency Musculoskeletal: No Gait Disturbance, No Joint Pain, No Joint Stiffness, No Joint Swelling, No Muscle Pain, No Muscular Weakness, No Pain In:, No Swelling In: Neurological: No Behavorial Changes, No Bowel/Bladder ControlChng, No Confusion , No Dizziness, No Gait Disturbance, No Headaches, No Impaired Coord/balance, No Memory Loss, No Numbness/Tingling, No Seizures, No Speech Problems, No Tremors, No Visual Changes, No Weakness Skin: No Acne, No Dry Skin, No Eczema, No Hair Changes, No Lumps, No Mole Changes, No Mottling, No Nail Changes, No Pruritus, No Rash, No Skin Lesion Changes Physical Exam General: Alert, Oriented X3, Cooperative HEENT: Atraumatic, PERRLA Lungs: Other (rhonchi right lung trujillo) Heart: Regular rate, Normal S1, Normal S2 Abdomen: Soft, No tenderness Extremities: No edema Skin: No significant lesion Neuro: Normal speech, Strength at 5/5 X4 ext, Normal tone, Sensation intact, Cranial nerves 3-12 NL Psych/Mental Status: Mental status NL MUSCULOSKELETAL: No deformity Vitals VITALS Vital Signs Date Time Temp Pulse Resp B/P Pulse Ox O2 Delivery O2 Flow Rate FiO2 05/16/16 11:00 97.7 70 18 150/73 99 Nasal Cannula 2.0 97.7 Labs Labs Laboratory Tests Test 05/14/16 19:15 05/15/16 07:45 05/16/16 06:00 Vancomycin Level Trough 23.9mcg/mL (10.0-20.0) 12.0mcg/mL (10.0-20.0) Vancomycin Last Dose Date 05/14/2016 05/15/16 Vancomycin Last Dose Time 0800 0800 White Blood Count 7.1x10^3/uL (4.0-11.0) 6.3x10^3/uL (4.0-11.0) Red Blood Count 3.20x10^6/uL (3.50-5.40) 2.95x10^6/uL (3.50-5.40) Hemoglobin 10.4g/dL (12.0-15.5) 9.5g/dL (12.0-15.5) Hematocrit 31.0% (36.0-47.0) 28.3% (36.0-47.0) Mean Corpuscular Volume 97fL (79-100) 96fL (79-100) Mean Corpuscular Hemoglobin 32pg (25-35) 32pg (25-35) Mean Corpuscular Hemoglobin Concent 33g/dL (31-37) 34g/dL (31-37) Red Cell Distribution Width 14.2% (11.5-14.5) 14.6% (11.5-14.5) Platelet Count 419x10^3/uL (140-400) 360x10^3/uL (140-400) Neutrophils (%) (Auto) 65% (31-73) 58% (31-73) Lymphocytes (%) (Auto) 24% (24-48) 28% (24-48) Monocytes (%) (Auto) 8% (0-9) 10% (0-9) Eosinophils (%) (Auto) 2% (0-3) 3% (0-3) Basophils (%) (Auto) 1% (0-3) 1% (0-3) Neutrophils # (Auto) 4.6x10^3uL (1.8-7.7) 3.6x10^3uL (1.8-7.7) Lymphocytes # (Auto) 1.7x10^3/uL (1.0-4.8) 1.8x10^3/uL (1.0-4.8) Monocytes # (Auto) 0.6x10^3/uL (0.0-1.1) 0.7x10^3/uL (0.0-1.1) Eosinophils # (Auto) 0.2x10^3/uL (0.0-0.7) 0.2x10^3/uL (0.0-0.7) Basophils # (Auto) 0.1x10^3/uL (0.0-0.2) 0.0x10^3/uL (0.0-0.2) Sodium Level 143mmol/L (136-145) 146mmol/L (136-145) Potassium Level 3.6mmol/L (3.5-5.1) 3.1mmol/L (3.5-5.1) Chloride Level 105mmol/L (98-107) 107mmol/L (98-107) Carbon Dioxide Level 31mmol/L (21-32) 32mmol/L (21-32) Anion Gap 7 (6-14) 7 (6-14) Blood Urea Nitrogen 9mg/dL (7-20) 8mg/dL (7-20) Creatinine 0.7mg/dL (0.6-1.0) 0.9mg/dL (0.6-1.0) Estimated GFR (Cockcroft-Gault) 84.2 63.0 Glucose Level 116mg/dL (70-99) 124mg/dL (70-99) Calcium Level 8.0mg/dL (8.5-10.1) 7.8mg/dL (8.5-10.1) Laboratory Tests Test 05/16/16 06:00 White Blood Count 6.3x10^3/uL (4.0-11.0) Red Blood Count 2.95x10^6/uL (3.50-5.40) Hemoglobin 9.5g/dL (12.0-15.5) Hematocrit 28.3% (36.0-47.0) Mean Corpuscular Volume 96fL (79-100) Mean Corpuscular Hemoglobin 32pg (25-35) Mean Corpuscular Hemoglobin Concent 34g/dL (31-37) Red Cell Distribution Width 14.6% (11.5-14.5) Platelet Count 360x10^3/uL (140-400) Neutrophils (%) (Auto) 58% (31-73) Lymphocytes (%) (Auto) 28% (24-48) Monocytes (%) (Auto) 10% (0-9) Eosinophils (%) (Auto) 3% (0-3) Basophils (%) (Auto) 1% (0-3) Neutrophils # (Auto) 3.6x10^3uL (1.8-7.7) Lymphocytes # (Auto) 1.8x10^3/uL (1.0-4.8) Monocytes # (Auto) 0.7x10^3/uL (0.0-1.1) Eosinophils # (Auto) 0.2x10^3/uL (0.0-0.7) Basophils # (Auto) 0.0x10^3/uL (0.0-0.2) Sodium Level 146mmol/L (136-145) Potassium Level 3.1mmol/L (3.5-5.1) Chloride Level 107mmol/L (98-107) Carbon Dioxide Level 32mmol/L (21-32) Anion Gap 7 (6-14) Blood Urea Nitrogen 8mg/dL (7-20) Creatinine 0.9mg/dL (0.6-1.0) Estimated GFR (Cockcroft-Gault) 63.0 Glucose Level 124mg/dL (70-99) Calcium Level 7.8mg/dL (8.5-10.1) Vancomycin Level Trough 12.0mcg/mL (10.0-20.0) Vancomycin Last Dose Date 05/15/16 Vancomycin Last Dose Time [address] chest 1. Right upper lobe consolidation compatible with pneumonia. 2. Apparent amputation of the right main bronchus near its origin raises the possibility of an obstructing neoplasm as the cause of the right upper lobe pneumonia. Bronchoscopy should be considered for further evaluation. Assessment/Plan Assessment/Plan 66-year-old female, with dwarfism, presents with a six-month history of chronic productive cough and shortness of breath requiring oxygen supplementation to maintain saturations above 90%. A chest x-ray and CT scan demonstrated consolidation of the right upper lobe. A bronchoscopy showed a completely occluding mass at the origin of the right upper lobe bronchus which had a relatively vascular appearance, almost like granulation tissue. The patient also reports frequent episodes of possible aspiration. Biopsies of the right upper lobe mass showed chronic inflammation. I would be very hesitant to perform a right upper lobectomy on this patient, considering her resting PO2 of 52, her overall frail status, and especially in the absence of a malignancy or large right upper lobe abscess which doesn't respond to intravenous antibiotics. It is likely that this right upper lobe mass is an aspirated foreign body which is now covered with granulation tissue. I think the best option for her would be to approach this endobronchially. She would require endoscopic debulking, best done under general anesthesia and using laser energy to minimize hemorrhage. At the same time, more tissue will be obtained which will exclude malignancy. YASMIN WELDON MD May 16, 2016 16:17
[2016-05-16 19:00] VITALS: BP 114/44
[2016-05-16] MEDS: traZODone 100 MG TABLET. PO SCH (20:49)
[2016-05-16 22:42] VITALS: BP 101/65
[2016-05-17] MEDS: PIPERACILLIN/TAZOBACTAM 4.5 GM in IV NORMAL SALINE 100ML 100 ML IV SCH ×3 (00:13→12:14)
[2016-05-17 03:00] VITALS: BP 116/71
[2016-05-17] MEDS: VANCOMYCIN 1.25 GM in IV NORMAL SALINE 250ML 250 ML IV SCH (03:20)
[2016-05-17 07:00] VITALS: BP 115/69
[2016-05-17 07:06] LABS: CALCIUM 7.8 mg/dL (8.5-10.1); CREATININE 1.4 mg/dL (0.6-1.0); GFR 37.9; POTASSIUM 3.2 mmol/L (3.5-5.1)
[2016-05-17 07:17] LABS: BASO % 1 % (0-3); EOS % 3 % (0-3); HEMATOCRIT 30.3 % (36.0-47.0); LYMPH # 1.5 x10^3/uL (1.0-4.8); LYMPH % 21 % (24-48); MEAN CORPUSCULAR HEMOGLOBIN 32 pg (25-35); MEAN CORPUSCULAR HGB CONC 33 g/dL (31-37); MEAN CORPUSCULAR VOLUME 98 fL (79-100); MONO % 9 % (0-9); NEUT % 66 % (31-73); PLATELET COUNT 314 x10^3/uL (140-400); RED BLOOD COUNT 3.09 x10^6/uL (3.50-5.40); RED CELL DISTRIBUTION WIDTH 14.5 % (11.5-14.5); WHITE BLOOD COUNT 6.9 x10^3/uL (4.0-11.0)
[2016-05-17] MEDS: PAROXETINE 20 MG TABLET. PO SCH (09:12)
[2016-05-17] MEDS: ALPRAZOLAM 1 MG TABLET PO SCH ×2 (09:12→15:47)
[2016-05-17] MEDS: ACYCLOVIR 200 MG CAPSULE PO SCH (09:12)
[2016-05-17] MEDS: PANTOPRAZOLE 40 MG TABLET. PO SCH (09:13)
[2016-05-17] MEDS: ASPIRIN 81 MG TAB.CHEW PO SCH (09:13)
[2016-05-17] MEDS: NYSTATIN TOPICAL POWDER 15GM BOTTLE. TP SCH (09:13)
[2016-05-17] MEDS: CELECOXIB 200 MG CAPSULE PO SCH (09:13)
--- NOTE | 2016-05-17 09:47 | PDOC ---
PULMONARY PROGRESS NOTES Subjective on 02, has sob, cough, no sputum Vitals Vital Signs Date Time Temp Pulse Resp B/P Pulse Ox O2 Delivery O2 Flow Rate FiO2 05/17/16 08:00 Nasal Cannula 2.0 05/17/16 07:00 97.9 84 20 115/69 100 97.9 General: Alert Lungs: Other (Decreased breath sounds on R, improved since yesterday) Cardiovascular: S1 Abdomen: Soft Extremities: No Edema Skin: Warm Labs Laboratory Tests Test 05/16/16 06:00 05/17/16 06:00 White Blood Count 6.3x10^3/uL (4.0-11.0) 6.9x10^3/uL (4.0-11.0) Red Blood Count 2.95x10^6/uL (3.50-5.40) 3.09x10^6/uL (3.50-5.40) Hemoglobin 9.5g/dL (12.0-15.5) 10.0g/dL (12.0-15.5) Hematocrit 28.3% (36.0-47.0) 30.3% (36.0-47.0) Mean Corpuscular Volume 96fL (79-100) 98fL (79-100) Mean Corpuscular Hemoglobin 32pg (25-35) 32pg (25-35) Mean Corpuscular Hemoglobin Concent 34g/dL (31-37) 33g/dL (31-37) Red Cell Distribution Width 14.6% (11.5-14.5) 14.5% (11.5-14.5) Platelet Count 360x10^3/uL (140-400) 314x10^3/uL (140-400) Neutrophils (%) (Auto) 58% (31-73) 66% (31-73) Lymphocytes (%) (Auto) 28% (24-48) 21% (24-48) Monocytes (%) (Auto) 10% (0-9) 9% (0-9) Eosinophils (%) (Auto) 3% (0-3) 3% (0-3) Basophils (%) (Auto) 1% (0-3) 1% (0-3) Neutrophils # (Auto) 3.6x10^3uL (1.8-7.7) 4.5x10^3uL (1.8-7.7) Lymphocytes # (Auto) 1.8x10^3/uL (1.0-4.8) 1.5x10^3/uL (1.0-4.8) Monocytes # (Auto) 0.7x10^3/uL (0.0-1.1) 0.6x10^3/uL (0.0-1.1) Eosinophils # (Auto) 0.2x10^3/uL (0.0-0.7) 0.2x10^3/uL (0.0-0.7) Basophils # (Auto) 0.0x10^3/uL (0.0-0.2) 0.0x10^3/uL (0.0-0.2) Sodium Level 146mmol/L (136-145) 147mmol/L (136-145) Potassium Level 3.1mmol/L (3.5-5.1) 3.2mmol/L (3.5-5.1) Chloride Level 107mmol/L (98-107) 108mmol/L (98-107) Carbon Dioxide Level 32mmol/L (21-32) 32mmol/L (21-32) Anion Gap 7 (6-14) 7 (6-14) Blood Urea Nitrogen 8mg/dL (7-20) 7mg/dL (7-20) Creatinine 0.9mg/dL (0.6-1.0) 1.4mg/dL (0.6-1.0) Estimated GFR (Cockcroft-Gault) 63.0 37.9 Glucose Level 124mg/dL (70-99) 78mg/dL (70-99) Calcium Level 7.8mg/dL (8.5-10.1) 7.8mg/dL (8.5-10.1) Vancomycin Level Trough 12.0mcg/mL (10.0-20.0) Vancomycin Last Dose Date 05/15/16 Vancomycin Last Dose Time 0800 Laboratory Tests Test 05/17/16 06:00 White Blood Count 6.9x10^3/uL (4.0-11.0) Red Blood Count 3.09x10^6/uL (3.50-5.40) Hemoglobin 10.0g/dL (12.0-15.5) Hematocrit 30.3% (36.0-47.0) Mean Corpuscular Volume 98fL (79-100) Mean Corpuscular Hemoglobin 32pg (25-35) Mean Corpuscular Hemoglobin Concent 33g/dL (31-37) Red Cell Distribution Width 14.5% (11.5-14.5) Platelet Count 314x10^3/uL (140-400) Neutrophils (%) (Auto) 66% (31-73) Lymphocytes (%) (Auto) 21% (24-48) Monocytes (%) (Auto) 9% (0-9) Eosinophils (%) (Auto) 3% (0-3) Basophils (%) (Auto) 1% (0-3) Neutrophils # (Auto) 4.5x10^3uL (1.8-7.7) Lymphocytes # (Auto) 1.5x10^3/uL (1.0-4.8) Monocytes # (Auto) 0.6x10^3/uL (0.0-1.1) Eosinophils # (Auto) 0.2x10^3/uL (0.0-0.7) Basophils # (Auto) 0.0x10^3/uL (0.0-0.2) Sodium Level 147mmol/L (136-145) Potassium Level 3.2mmol/L (3.5-5.1) Chloride Level 108mmol/L (98-107) Carbon Dioxide Level 32mmol/L (21-32) Anion Gap 7 (6-14) Blood Urea Nitrogen 7mg/dL (7-20) Creatinine 1.4mg/dL (0.6-1.0) Estimated GFR (Cockcroft-Gault) 37.9 Glucose Level 78mg/dL (70-99) Calcium Level 7.8mg/dL (8.5-10.1) Medications Active Scripts Medications Dose Route/Sig Days Date Category Metoclopramide Hcl 5 Mg Tablet 5 Mg PO TID PRN 05/14/16 Reported Meclizine Hcl 25 Mg Tablet 1 Tab PO PRN TID 05/14/16 Reported Pantoprazole Sodium 40 Mg Tablet.dr 1 Tab PO DAILY 05/14/16 Reported Acyclovir 400 Mg Tablet 1 Tab PO DAILY08 05/14/16 Reported Aspirin 81 Mg Tab.chew 1 Tab PO DAILY 05/14/16 Reported Celebrex (Celecoxib) 200 Mg Capsule 200 Mg PO BID 30 05/14/16 Reported Hydrocodone-Apap 7.5-325 (Hydrocodone Bit/Acetaminophen) 1 Each Tablet 1 Tab PO Q8HRS 05/13/16 Reported Xanax (Alprazolam) 1 Mg Tablet 1 Tab PO TID 05/13/16 Reported Trazodone Hcl 50 Mg Tablet 2 Tab PO QHS 05/13/16 Reported Paxil (Paroxetine Hcl) 20 Mg Tablet 1 Tab PO DAILY 05/13/16 Reported Paxil (Paroxetine Hcl) 40 Mg Tablet 1 Tab PO DAILY08 05/13/16 Reported Impression . 1. Right upper lobe consolidation with postobstructive process. This patient has been coughing for 6 months. The cough is also usually associated with food. s/p Bronch/ endobronchial lesion completely occluding RUL/ biopsy with bronchial inflammation, no malignancy 2. No significant history of tobacco use. 3. Acute hypoxic respiratory failure secondary to above. 4. Moderate protein-calorie malnutrition. 5. Dwarfism. Plan . 1. d/w pt and bronchoscopy . No malignancy. She always eat in supine position and I suspect she has chronic aspiration resulting in foreign body aspiration /endobronchial granulation tissue formation. She is at risk for lung abscess. ? candidate for laser. thorasic surgery would not recommend surgery. would need laser, ? done at [facility] 2. antibiotic coverage with vancomycin and Zosyn. cxr with no change 3. Speech consult with video swallow done . No aspiration IN UPRIGHT POSITION 4. Bronchodilators. 5. Get [facility] opinion 6. Further recommendations to follow. disregard this note, see my other note today. thanks NORA PIZANO MD May 17, 2016 09:47
--- NOTE | 2016-05-17 09:54 | PDOC ---
PULMONARY PROGRESS NOTES Subjective on 02, has sob, cough, no sputum Vitals Vital Signs Date Time Temp Pulse Resp B/P Pulse Ox O2 Delivery O2 Flow Rate FiO2 05/17/16 08:00 Nasal Cannula 2.0 05/17/16 07:00 97.9 84 20 115/69 100 97.9 Comments ros as mentioned above, other sys otherwise neg General: Alert Lungs: Other (Decreased breath sounds on R, improved since yesterday) Cardiovascular: S1 Abdomen: Soft Extremities: No Edema Skin: Warm Labs Laboratory Tests Test 05/16/16 06:00 05/17/16 06:00 White Blood Count 6.3x10^3/uL (4.0-11.0) 6.9x10^3/uL (4.0-11.0) Red Blood Count 2.95x10^6/uL (3.50-5.40) 3.09x10^6/uL (3.50-5.40) Hemoglobin 9.5g/dL (12.0-15.5) 10.0g/dL (12.0-15.5) Hematocrit 28.3% (36.0-47.0) 30.3% (36.0-47.0) Mean Corpuscular Volume 96fL (79-100) 98fL (79-100) Mean Corpuscular Hemoglobin 32pg (25-35) 32pg (25-35) Mean Corpuscular Hemoglobin Concent 34g/dL (31-37) 33g/dL (31-37) Red Cell Distribution Width 14.6% (11.5-14.5) 14.5% (11.5-14.5) Platelet Count 360x10^3/uL (140-400) 314x10^3/uL (140-400) Neutrophils (%) (Auto) 58% (31-73) 66% (31-73) Lymphocytes (%) (Auto) 28% (24-48) 21% (24-48) Monocytes (%) (Auto) 10% (0-9) 9% (0-9) Eosinophils (%) (Auto) 3% (0-3) 3% (0-3) Basophils (%) (Auto) 1% (0-3) 1% (0-3) Neutrophils # (Auto) 3.6x10^3uL (1.8-7.7) 4.5x10^3uL (1.8-7.7) Lymphocytes # (Auto) 1.8x10^3/uL (1.0-4.8) 1.5x10^3/uL (1.0-4.8) Monocytes # (Auto) 0.7x10^3/uL (0.0-1.1) 0.6x10^3/uL (0.0-1.1) Eosinophils # (Auto) 0.2x10^3/uL (0.0-0.7) 0.2x10^3/uL (0.0-0.7) Basophils # (Auto) 0.0x10^3/uL (0.0-0.2) 0.0x10^3/uL (0.0-0.2) Sodium Level 146mmol/L (136-145) 147mmol/L (136-145) Potassium Level 3.1mmol/L (3.5-5.1) 3.2mmol/L (3.5-5.1) Chloride Level 107mmol/L (98-107) 108mmol/L (98-107) Carbon Dioxide Level 32mmol/L (21-32) 32mmol/L (21-32) Anion Gap 7 (6-14) 7 (6-14) Blood Urea Nitrogen 8mg/dL (7-20) 7mg/dL (7-20) Creatinine 0.9mg/dL (0.6-1.0) 1.4mg/dL (0.6-1.0) Estimated GFR (Cockcroft-Gault) 63.0 37.9 Glucose Level 124mg/dL (70-99) 78mg/dL (70-99) Calcium Level 7.8mg/dL (8.5-10.1) 7.8mg/dL (8.5-10.1) Vancomycin Level Trough 12.0mcg/mL (10.0-20.0) Vancomycin Last Dose Date 05/15/16 Vancomycin Last Dose Time 0800 Laboratory Tests Test 05/17/16 06:00 White Blood Count 6.9x10^3/uL (4.0-11.0) Red Blood Count 3.09x10^6/uL (3.50-5.40) Hemoglobin 10.0g/dL (12.0-15.5) Hematocrit 30.3% (36.0-47.0) Mean Corpuscular Volume 98fL (79-100) Mean Corpuscular Hemoglobin 32pg (25-35) Mean Corpuscular Hemoglobin Concent 33g/dL (31-37) Red Cell Distribution Width 14.5% (11.5-14.5) Platelet Count 314x10^3/uL (140-400) Neutrophils (%) (Auto) 66% (31-73) Lymphocytes (%) (Auto) 21% (24-48) Monocytes (%) (Auto) 9% (0-9) Eosinophils (%) (Auto) 3% (0-3) Basophils (%) (Auto) 1% (0-3) Neutrophils # (Auto) 4.5x10^3uL (1.8-7.7) Lymphocytes # (Auto) 1.5x10^3/uL (1.0-4.8) Monocytes # (Auto) 0.6x10^3/uL (0.0-1.1) Eosinophils # (Auto) 0.2x10^3/uL (0.0-0.7) Basophils # (Auto) 0.0x10^3/uL (0.0-0.2) Sodium Level 147mmol/L (136-145) Potassium Level 3.2mmol/L (3.5-5.1) Chloride Level 108mmol/L (98-107) Carbon Dioxide Level 32mmol/L (21-32) Anion Gap 7 (6-14) Blood Urea Nitrogen 7mg/dL (7-20) Creatinine 1.4mg/dL (0.6-1.0) Estimated GFR (Cockcroft-Gault) 37.9 Glucose Level 78mg/dL (70-99) Calcium Level 7.8mg/dL (8.5-10.1) Medications Active Scripts Medications Dose Route/Sig Days Date Category Metoclopramide Hcl 5 Mg Tablet 5 Mg PO TID PRN 05/14/16 Reported Meclizine Hcl 25 Mg Tablet 1 Tab PO PRN TID 05/14/16 Reported Pantoprazole Sodium 40 Mg Tablet.dr 1 Tab PO DAILY 05/14/16 Reported Acyclovir 400 Mg Tablet 1 Tab PO DAILY08 05/14/16 Reported Aspirin 81 Mg Tab.chew 1 Tab PO DAILY 05/14/16 Reported Celebrex (Celecoxib) 200 Mg Capsule 200 Mg PO BID 30 05/14/16 Reported Hydrocodone-Apap 7.5-325 (Hydrocodone Bit/Acetaminophen) 1 Each Tablet 1 Tab PO Q8HRS 05/13/16 Reported Xanax (Alprazolam) 1 Mg Tablet 1 Tab PO TID 05/13/16 Reported Trazodone Hcl 50 Mg Tablet 2 Tab PO QHS 05/13/16 Reported Paxil (Paroxetine Hcl) 20 Mg Tablet 1 Tab PO DAILY 05/13/16 Reported Paxil (Paroxetine Hcl) 40 Mg Tablet 1 Tab PO DAILY08 05/13/16 Reported Comments cxr reviewed. No significant change. Persistent infiltrate in the right upper lobe compatible with pneumonia Impression . 1. Right upper lobe consolidation with postobstructive process. This patient has been coughing for 6 months. The cough is also usually associated with food. s/p Bronch/ endobronchial lesion completely occluding RUL/ biopsy with bronchial inflammation, no malignancy 2. No significant history of tobacco use. 3. Acute hypoxic respiratory failure secondary to above. 4. Moderate protein-calorie malnutrition. 5. Dwarfism. Plan . 1. d/w pt and bronchoscopy . No malignancy. She always eat in supine position and I suspect she has chronic aspiration resulting in foreign body aspiration /endobronchial granulation tissue formation. She is at risk for lung abscess. ? candidate for laser. thorasic surgery would not recommend surgery. would need laser, discussed w michael nunez dc patient. she needs a fu w dr bernal in his office to help to set up laser at . 2. antibiotic coverage with vancomycin and Zosyn. cxr with no change 3. Speech consult with video swallow done . No aspiration IN UPRIGHT POSITION 4. Bronchodilators. 5. Get [facility] opinion 6. Further recommendations to follow. discussed w rn, pts . NORA PIZANO MD May 17, 2016 09:53
[2016-05-17 11:00] VITALS: BP 109/61
[2016-05-17] MEDS: VANCOMYCIN PER PHARMACY MC PRN ×2 (11:29→11:30)
--- NOTE | 2016-05-17 12:13 | PDOC ---
PROGRESS NOTES Chief Complaint Chief Complaint 1. Right upper lobe infiltrate 2. Hypoxic respiratory failure. 3. Chronic back pain. 4. Mild hyperkalemia. 5. Thrombocytosis. 6. Hypertension. 7. Dwarfism History of Present Illness History of Present Illness Pt resting comfortably in bed this AM. Still has slight cough but improved since admission. Shortness of breath still present as well but improved since admission. DW Healthcare Team/Family- [facility] states pt not good candidate for lobectomy at this time; Pulm ok with discharge; Stressed of upright position during any PO feedings to family again today Vitals Vitals Vital Signs Date Time Temp Pulse Resp B/P Pulse Ox O2 Delivery O2 Flow Rate FiO2 05/17/16 08:00 Nasal Cannula 2.0 05/17/16 07:00 97.9 84 20 115/69 100 97.9 Physical Exam General: Alert, Oriented X3, Cooperative, No acute distress Heart: Regular rate, No murmurs Lungs: Other (Dimissed breath sounds ) Abdomen: Soft, No tenderness Extremities: No cyanosis, No edema Skin: No rashes, No significant lesion Labs LABS Laboratory Tests Test 05/17/16 06:00 White Blood Count 6.9x10^3/uL (4.0-11.0) Red Blood Count 3.09x10^6/uL (3.50-5.40) Hemoglobin 10.0g/dL (12.0-15.5) Hematocrit 30.3% (36.0-47.0) Mean Corpuscular Volume 98fL (79-100) Mean Corpuscular Hemoglobin 32pg (25-35) Mean Corpuscular Hemoglobin Concent 33g/dL (31-37) Red Cell Distribution Width 14.5% (11.5-14.5) Platelet Count 314x10^3/uL (140-400) Neutrophils (%) (Auto) 66% (31-73) Lymphocytes (%) (Auto) 21% (24-48) Monocytes (%) (Auto) 9% (0-9) Eosinophils (%) (Auto) 3% (0-3) Basophils (%) (Auto) 1% (0-3) Neutrophils # (Auto) 4.5x10^3uL (1.8-7.7) Lymphocytes # (Auto) 1.5x10^3/uL (1.0-4.8) Monocytes # (Auto) 0.6x10^3/uL (0.0-1.1) Eosinophils # (Auto) 0.2x10^3/uL (0.0-0.7) Basophils # (Auto) 0.0x10^3/uL (0.0-0.2) Sodium Level 147mmol/L (136-145) Potassium Level 3.2mmol/L (3.5-5.1) Chloride Level 108mmol/L (98-107) Carbon Dioxide Level 32mmol/L (21-32) Anion Gap 7 (6-14) Blood Urea Nitrogen 7mg/dL (7-20) Creatinine 1.4mg/dL (0.6-1.0) Estimated GFR (Cockcroft-Gault) 37.9 Glucose Level 78mg/dL (70-99) Calcium Level 7.8mg/dL (8.5-10.1) Review of Systems Review of Systems Complaining of Weakness Complaining of Cough Complaining of SOA All other ROS negative Assessment and Plan Assessmemt and Plan Problems Medical Problems: (1) Community acquired pneumonia Status: Acute (2) Hypoxia Status: Acute (3) Lung neoplasm Status: Acute 1. Right upper lobe infiltrate 2. Hypoxic respiratory failure. 3. Chronic back pain. 4. Mild hyperkalemia. 5. Thrombocytosis. 6. Hypertension. 7. Dwarfism Plan: - Pulmonary Consulted and on Case- appreciate recommendations - Bx: showed no malignancy - Plan is for F/u in outpatient basis with Dr. Tejeda to set-up Laser procedure at - Continue Supplemental 02 with Nasal Cannula as needed - OK with discharge w/ f/u outpatient - [facility] Consult placed - pt determined to be not a candidate for lobectomy - appreciate recommendations - Speech/Swallow Evaluation: Discussed in detail with pt family again the need for upright position during PO intake to decrease risk of aspiration - Continue regular home medications on discharge - DW RN and Pulm pt ok with discharge Problems: Comment Review of Relevant I have reviewed the following items ginger (where applicable) has been applied. Labs Laboratory Tests Test 05/16/16 06:00 05/17/16 06:00 White Blood Count 6.3x10^3/uL (4.0-11.0) 6.9x10^3/uL (4.0-11.0) Red Blood Count 2.95x10^6/uL (3.50-5.40) 3.09x10^6/uL (3.50-5.40) Hemoglobin 9.5g/dL (12.0-15.5) 10.0g/dL (12.0-15.5) Hematocrit 28.3% (36.0-47.0) 30.3% (36.0-47.0) Mean Corpuscular Volume 96fL (79-100) 98fL (79-100) Mean Corpuscular Hemoglobin 32pg (25-35) 32pg (25-35) Mean Corpuscular Hemoglobin Concent 34g/dL (31-37) 33g/dL (31-37) Red Cell Distribution Width 14.6% (11.5-14.5) 14.5% (11.5-14.5) Platelet Count 360x10^3/uL (140-400) 314x10^3/uL (140-400) Neutrophils (%) (Auto) 58% (31-73) 66% (31-73) Lymphocytes (%) (Auto) 28% (24-48) 21% (24-48) Monocytes (%) (Auto) 10% (0-9) 9% (0-9) Eosinophils (%) (Auto) 3% (0-3) 3% (0-3) Basophils (%) (Auto) 1% (0-3) 1% (0-3) Neutrophils # (Auto) 3.6x10^3uL (1.8-7.7) 4.5x10^3uL (1.8-7.7) Lymphocytes # (Auto) 1.8x10^3/uL (1.0-4.8) 1.5x10^3/uL (1.0-4.8) Monocytes # (Auto) 0.7x10^3/uL (0.0-1.1) 0.6x10^3/uL (0.0-1.1) Eosinophils # (Auto) 0.2x10^3/uL (0.0-0.7) 0.2x10^3/uL (0.0-0.7) Basophils # (Auto) 0.0x10^3/uL (0.0-0.2) 0.0x10^3/uL (0.0-0.2) Sodium Level 146mmol/L (136-145) 147mmol/L (136-145) Potassium Level 3.1mmol/L (3.5-5.1) 3.2mmol/L (3.5-5.1) Chloride Level 107mmol/L (98-107) 108mmol/L (98-107) Carbon Dioxide Level 32mmol/L (21-32) 32mmol/L (21-32) Anion Gap 7 (6-14) 7 (6-14) Blood Urea Nitrogen 8mg/dL (7-20) 7mg/dL (7-20) Creatinine 0.9mg/dL (0.6-1.0) 1.4mg/dL (0.6-1.0) Estimated GFR (Cockcroft-Gault) 63.0 37.9 Glucose Level 124mg/dL (70-99) 78mg/dL (70-99) Calcium Level 7.8mg/dL (8.5-10.1) 7.8mg/dL (8.5-10.1) Vancomycin Level Trough 12.0mcg/mL (10.0-20.0) Vancomycin Last Dose Date 05/15/16 Vancomycin Last Dose Time 0800 Laboratory Tests Test 05/17/16 06:00 White Blood Count 6.9x10^3/uL (4.0-11.0) Red Blood Count 3.09x10^6/uL (3.50-5.40) Hemoglobin 10.0g/dL (12.0-15.5) Hematocrit 30.3% (36.0-47.0) Mean Corpuscular Volume 98fL (79-100) Mean Corpuscular Hemoglobin 32pg (25-35) Mean Corpuscular Hemoglobin Concent 33g/dL (31-37) Red Cell Distribution Width 14.5% (11.5-14.5) Platelet Count 314x10^3/uL (140-400) Neutrophils (%) (Auto) 66% (31-73) Lymphocytes (%) (Auto) 21% (24-48) Monocytes (%) (Auto) 9% (0-9) Eosinophils (%) (Auto) 3% (0-3) Basophils (%) (Auto) 1% (0-3) Neutrophils # (Auto) 4.5x10^3uL (1.8-7.7) Lymphocytes # (Auto) 1.5x10^3/uL (1.0-4.8) Monocytes # (Auto) 0.6x10^3/uL (0.0-1.1) Eosinophils # (Auto) 0.2x10^3/uL (0.0-0.7) Basophils # (Auto) 0.0x10^3/uL (0.0-0.2) Sodium Level 147mmol/L (136-145) Potassium Level 3.2mmol/L (3.5-5.1) Chloride Level 108mmol/L (98-107) Carbon Dioxide Level 32mmol/L (21-32) Anion Gap 7 (6-14) Blood Urea Nitrogen 7mg/dL (7-20) Creatinine 1.4mg/dL (0.6-1.0) Estimated GFR (Cockcroft-Gault) 37.9 Glucose Level 78mg/dL (70-99) Calcium Level 7.8mg/dL (8.5-10.1) Microbiology 05/13/16 Blood Culture - Preliminary, Resulted NO GROWTH AFTER 3 DAYS Medications Current Medications Iohexol (Omnipaque 300 Mg/ml) 75 ml 1X ONCE IV Last administered on 05/13/16 15:11; Start 05/13/16 at 15:15; Stop 05/13/16 at 15:16; Status DC Info (Do NOT chart on this entry -- for MONITORING) 1 each PRN DAILY PRN MC SEE COMMENTS; Start 05/13/16 at 15:15; Stop 05/15/16 at 15:14; Status DC Levofloxacin/ Dextrose 1 each 1 each PRN DAILY PRN MC SEE COMMENTS; Start at 16:15 Levofloxacin/ Dextrose (LEVAQUIN 750mg PREMIX) 150 ml @ 100 mls/hr 1X ONCE IV Last administered on 05/13/16 17:10; Start 05/13/16 at 16:45; Stop 05/13/16 at 18:14; Status DC Vancomycin HCl (Vanco Per Pharmacy) 1 each PRN DAILY PRN MC SEE COMMENTS Last administered on 05/17/16 11:30; Start 05/13/16 at 16:30 Piperacillin Sod/ Tazobactam Sod 1 each 1 each PRN DAILY PRN MC SEE COMMENTS; Start 05/13/16 at 16:30 Vancomycin HCl 2 gm/Sodium Chloride 500 ml @ 250 mls/hr 1X ONCE IV Last administered on 05/13/16 20:30; Start 05/13/16 at 17:00; Stop 05/13/16 at 18:59; Status DC Piperacillin Sod/ Tazobactam Sod/ Sodium Chloride (Zosyn/Iv Sodium Chloride 0.9 % 100ml) 100 ml @ 200 mls/hr 1X ONCE IV Last administered on 05/13/16 19:53; Start 05/13/16 at 17:00; Stop 05/13/16 at 17:29; Status DC Ondansetron HCl (Zofran) 4 mg PRN Q8HRS PRN IV NAUSEA/VOMITING; Start 05/13/16 at 17:00; Stop 05/14/16 at 16:59; Status DC Fentanyl Citrate 50 mcg 50 mcg PRN Q2HR PRN IV PAIN Last administered on 12:04; Start 05/13/16 at 17:00; Stop 05/14/16 at 16:59; Status DC Levofloxacin/ Dextrose 150 ml @ 100 mls/hr Q24H IV ; Start 05/14/16 at 17:00; Stop 05/15/16 at 11:13; Status DC Piperacillin Sod/ Tazobactam Sod/ Sodium Chloride (Zosyn/Iv Sodium Chloride 0.9 % 100ml) 100 ml @ 200 mls/hr Q6HRS IV Last administered on 05/17/16 06:14; Start 05/14/16 at 00:00 Acetaminophen (Tylenol) 325 mg PRN Q6HRS PRN PO MILD PAIN / TEMP; Start at 18:45 Acetaminophen/ Hydrocodone Bitart (Lortab 5/325) 1 tab PRN Q6HRS PRN PO MODERATE TO SEVERE PAIN Last administered on 05/13/16 22:49; Start 05/13/16 at 18 :45 Hydralazine HCl (Apresoline) 10 mg PRN Q4HRS PRN IVP ELEVATED BP, SEE COMMENTS ; Start 05/13/16 at 18:45 Ondansetron HCl (Zofran) 4 mg PRN Q8HRS PRN IV NAUSEA/VOMITING; Start 05/13/16 at 18:45 Albuterol Sulfate 2.5 mg 2.5 mg PRN Q4HRS PRN NEB SHORTNESS OF BREATH Last administered on 05/14/16 09:42; Start 05/13/16 at 18:45 Vancomycin HCl/ Sodium Chloride (Iv Sodium Chloride 0.9% 250ml) 250 ml @ 167 mls/hr Q12H IV Last administered on 05/14/16 08:28; Start 05/14/16 at 08:00; Stop 05/14/16 at 19:51; Status DC Vancomycin HCl 1 each 1 each 1X ONCE MC Last administered on 05/14/16 19:30; Start 05/14/16 at 19:30; Stop 05/14/16 at 19:31; Status DC Piperacillin Sod/ Tazobactam Sod/ Sodium Chloride (Zosyn/Iv Sodium Chloride 0.9 % 50ml) 50 ml @ 100 mls/hr Q6HRS IV ; Start 05/14/16 at 00:00; Stop 05/14/16 at 00:00; Status DC Paroxetine HCl (Paxil) 40 mg DAILY PO Last administered on 05/17/16 09:12; Start 05/14/16 at 09:00 Trazodone HCl (Desyrel) 100 mg QHS PO Last administered on 05/16/16 20:49; Start 05/13/16 at 23:00 Alprazolam (Xanax) 1 mg TID PO Last administered on 05/17/16 09:12; Start 05/13 at 23:00 Paroxetine HCl (Paxil) 20 mg QHS PO Last administered on 05/16/16 20:48; Start 05/13/16 at 23:00 Aspirin (Children'S Aspirin) 81 mg DAILY PO Last administered on 05/17/16 09: 13; Start 05/14/16 at 09:00 Celecoxib (Celebrex) 200 mg BID PO Last administered on 05/17/16 09:13; Start 05/14/16 at 09:00 Metoclopramide HCl (Reglan) 5 mg PRN TID PRN PO HEARTBURN / GAS; Start 05/14/16 at 05:00 Pantoprazole Sodium (Protonix) 40 mg DAILYAC PO Last administered on 05/17/16 09:13; Start 05/14/16 at 07:30 Acyclovir (Zovirax) 400 mg DAILY08 PO Last administered on 05/17/16 09:12; Start 05/14/16 at 08:00 Meclizine HCl (Antivert) 25 mg PRN TID PRN PO DIZZINESS; Start 05/14/16 at 05:00 Non-Formulary Medication 1 tab 1 tab DAILY08 PO ; Start 05/14/16 at 08:00; Status UNV Lactated Ringer's (Iv Lactated Ringers) 1,000 ml @ 100 mls/hr Q10H IV Last administered on 05/16/16 20:48; Start 05/14/16 at 10:00 Midazolam HCl 2 mg 2 mg STK-MED ONCE .ROUTE ; Start 05/14/16 at 09:37; Stop at 09:38; Status DC Propofol (Diprivan) 20 ml @ As Directed STK-MED ONCE IV ; Start 05/14/16 at 09:38 ; Stop 05/14/16 at 09:39; Status DC Epinephrine HCl 1 mg STK-MED ONCE .ROUTE ; Start 05/14/16 at 10:10; Stop 05/14/16 at 10:11; Status DC Fentanyl Citrate 50 mcg 50 mcg PRN Q2HRS PRN IV PAIN; Start 05/14/16 at 12:00 Vancomycin HCl/ Sodium Chloride (Iv Sodium Chloride 0.9% 250ml) 250 ml @ 167 mls/hr Q24H IV Last administered on 05/15/16 08:00; Start 05/15/16 at 08:00; Stop 05/16/16 at 07:34; Status DC Barium Sulfate 148 gm 148 gm 1X ONCE PO Last administered on 05/15/16 15:22; Start 05/15/16 at 10:15; Stop 05/15/16 at 10:16; Status DC Levofloxacin/ Dextrose (LEVAQUIN 750mg PREMIX) 150 ml @ 100 mls/hr Q24H IV Last administered on 05/16/16 13:04; Start 05/15/16 at 12:00 Vancomycin HCl 1 each 1X ONCE MC Last administered on 05/16/16 07:35; Start 05/16/16 at 07:30; Stop 05/16/16 at 07:31; Status DC Nystatin 1 augustina 1 augustina BID TP Last administered on 05/17/16 09:13; Start at 21:00 Vancomycin HCl/ Sodium Chloride (Iv Sodium Chloride 0.9% 250ml) 250 ml @ 167 mls/hr Q18H IV Last administered on 05/17/16 03:20; Start 05/16/16 at 08:00 Vancomycin HCl 1 each 1X ONCE MC ; Start 05/17/16 at 19:30; Stop 05/17/16 at 19 :31 Active Scripts Active Reported Metoclopramide Hcl 5 Mg Tablet 5 Mg PO TID PRN Meclizine Hcl 25 Mg Tablet 1 Tab PO PRN TID Pantoprazole Sodium 40 Mg Tablet.dr 1 Tab PO DAILY Acyclovir 400 Mg Tablet 1 Tab PO DAILY08 Aspirin 81 Mg Tab.chew 1 Tab PO DAILY Celebrex (Celecoxib) 200 Mg Capsule 200 Mg PO BID 30 Days Hydrocodone-Apap 7.5-325 (Hydrocodone Bit/Acetaminophen) 1 Each Tablet 1 Tab PO Q8HRS Xanax (Alprazolam) 1 Mg Tablet 1 Tab PO TID Trazodone Hcl 50 Mg Tablet 2 Tab PO QHS Paxil (Paroxetine Hcl) 20 Mg Tablet 1 Tab PO DAILY Paxil (Paroxetine Hcl) 40 Mg Tablet 1 Tab PO DAILY08 Vitals/I & O Vital Sign - Last 24 Hours 05/16/16 05/16/16 05/16/16 05/16/16 15:00 19:00 20:00 22:42 Temp 97.5 96.8 96.6 97.5 96.8 96.6 Pulse 82 76 92 Resp 18 20 20 B/P 137/73 114/44 101/65 Pulse Ox 95 99 95 O2 Delivery Nasal Cannula Nasal Cannula Nasal Cannula Nasal Cannula O2 Flow Rate 2.0 2.0 2.0 2.0 05/17/16 05/17/16 05/17/16 03:00 07:00 08:00 Temp 97.7 97.9 97.7 97.9 Pulse 76 84 Resp 20 20 B/P 116/71 115/69 Pulse Ox 95 100 O2 Delivery Nasal Cannula Nasal Cannula Nasal Cannula O2 Flow Rate 2.0 2.0 2.0 Intake and Output 05/16/16 05/16/16 05/17/16 15:00 23:00 07:00 Intake Total 270 ml 220 ml 0 ml Output Total 4 ml Balance 270 ml 220 ml -4 ml KARMA ALVARADO III DO May 17, 2016 12:13
[2016-05-17 15:29] VITALS: BP 101/49
[2016-05-17] MEDS ORDERED: PIPERACILLIN/TAZOBACTAM 3.375 GM in IV NORMAL SALINE 50ML 50 ML IV SCH (18:00)
--- NOTE | 2016-05-26 09:57 | DS ---
DATE OF DISCHARGE: 05/17/2016 ADMISSION DIAGNOSIS: Lung mass, shortness of breath. DISCHARGE DIAGNOSIS: Resolving lung mass, suspect granulation tissue, resolving shortness of breath. HOSPITAL COURSE: The patient is a pleasant 66-year-old female who has very short stature. She came in with some pulmonary symptoms. Imaging study showed a possible mass. We were concerned she could have a neoplasm, but actually we did a bronchoscopy which showed mainly granulation tissue. She was discharged to home. DISPOSITION: Home. ACTIVITY: As tolerated. DIET: Low sodium. MEDICATIONS: Please see the MRAD. TOTAL TIME ON DISCHARGE: 39 minutes. RADHAL Ela ALVARADO DO DR: NEDRA/evelyn JOB#: [id number] / [id number]
== END 2016-05-17 20:26 | disposition home or self-care (01) | DRG 177 ==
LOC: ER 11:52 → 6 SOUTH 16:06
PROVIDERS: ADMIT Internal Medicine; ATTEND Internal Medicine
PROC: 0BB48ZX Excision of Right Upper Lobe Bronchus, Via Natural or Artificial Opening Endoscopic, Diagnostic (ICD-10-PCS; principal; 2016-05-14 10:00)
DX: J69.0 Pneumonitis due to inhalation of food and vomit (principal); J96.01 Acute respiratory failure with hypoxia; E44.0 Moderate protein-calorie malnutrition; Z68.43 Body mass index [BMI] 50.0-59.9, adult; J84.10 Pulmonary fibrosis, unspecified; E34.3 Short stature due to endocrine disorder; E87.5 Hyperkalemia; F41.9 Anxiety disorder, unspecified; I10 Essential (primary) hypertension; Z96.659 Presence of unspecified artificial knee joint; G89.29 Other chronic pain; D75.89 Other specified diseases of blood and blood-forming organs; Z90.710 Acquired absence of both cervix and uterus
CPT/HCPCS: 31622; 36415; 36569; 36600; 71010; 71260; 74230; 80048; 80053; 80202; 82805; 83605; 84484; 85007; 85027; 85610; 87040; 88104; 88112; 88305; 93005; 94640; 94760; 96365; J0171; J1956; J2250; J2543; J2704; J3010; J3370; J7040; J7050; J7120; Q9967; 92526; 92611; 97110; 97530; 99285-25; J7030

== ENCOUNTER → 2016-08-22 | Outpatient (CLI) | payer BC, MEDICARE ==
--- NOTE | 2016-08-22 12:53 | RAD ---
Examination: CT soft tissue neck and chest without contrast History: History of pneumonia, neck swelling Comparison: CT chest from 05/13/2016 Technique: Axial CT images of the soft tissue neck and chest were performed without contrast with coronal and sagittal reformats were performed PQRS Compliance Statement: One or more of the following individualized dose reduction techniques were utilized for this examination: 1. Automated exposure control 2. Adjustment of the mA and/or kV according to patient size 3. Use of iterative reconstruction technique Findings: The bilateral orbital globes appear intact graft the parotid spaces, manager recruiting spaces, carotid spaces grossly appears unremarkable The visualized oropharynx, vallecula, piriform sinuses grossly appears unremarkable. The visualized vocal cords grossly appears unremarkable. The parapharyngeal spaces are patent. Small radiologically insignificant bilateral cervical lymph nodes are identified. Moderate degenerative changes identified in the visualized cervicothoracic spine. There is thinned appearance of the C2 dens could be old injury or old fracture or due to degeneration. The central airways are patent. The heart size grossly appears unremarkable. Coronary artery calcifications identified. No evidence of a pleural effusion.. Small hiatal hernia. No radiologically significant mediastinal lymphadenopathy identified. Minimal airspace opacity identified in the right upper lobe of the lung probably scarring changes. The previously visualized right upper lobe consolidation has decreased significantly. No evidence of pleural effusion or pneumothorax. Minimal left lung base atelectasis or scarring changes. Examination is limited due to patient body habitus and due to lack of IV contrast. The visualized noncontrasted liver, spleen, adrenals grossly appears unremarkable. Cholecystectomy clips are identified. Endplate deformities with mild compression changes identified in thoracic vertebral bodies grossly similar to prior exam. Impression: 1. Examination is limited due to lack of IV contrast and due to patient body habitus. 2. No obvious mass or lesion identified in the soft tissues. 3. Mild airspace opacity identified in the right upper lobe lung probably scarring or atelectasis. The previously visualized right upper lobe consolidation has near completely resolved. 4. There is thinned appearance of the C2 dens could be old injury or old fracture or due to degeneration. Correlate clinically. If there is a pin consider MRI for further evaluation.
== END | disposition home or self-care (01) ==
LOC: CT 10:01
PROVIDERS: ATTEND Internal Medicine Critical Care Medicine
DX: J18.9 Pneumonia, unspecified organism (principal); R22.1 Localized swelling, mass and lump, neck
CPT/HCPCS: 70490; 71250

== ENCOUNTER → 2017-11-05 | Outpatient (CLI) | payer OTHER | END | disposition home or self-care (01) | LOC: KCIC MAMMO 13:07 | DX: Z12.31 Encounter for screening mammogram for malignant neoplasm of breast (principal); I10 Essential (primary) hypertension; E87.5 Hyperkalemia; Z90.710 Acquired absence of both cervix and uterus | CPT/HCPCS: 77067 ==